=== PATIENT | female | born 1955 | race Caucasian/White ===

== ENCOUNTER → 2019-03-28 | Day surgery (SDC) | payer MEDICARE, MEDICAID ==
[~2019-03-28] VITALS: Ht 157.5 cm; Wt 74.8 kg
[~2019-03-28] MED LIST: AMLO10TA80 PO; ASPI-1393 PO; BACITRACIN 50,000 UNITS/VIAL ONE; DAPA10TA PO; GABA-531 PO; HYDR25TA PO; INSNOV SUBCUT; INSU100I24 SQ; LIDOCAINE HCL/EPINEPHRINE 1%-EPI 1:100,000 20 ML VIAL ONE; LOSA100T32 PO; THROMBIN (BOVINE) 5000 UNITS/VIAL TOP ONE; TRAM50TA3 PO
== END | disposition home or self-care (01) ==
LOC: OR 09:46
PROVIDERS: ATTEND Neurological Surgery
DX: M54.2 Cervicalgia (principal); E11.9 Type 2 diabetes mellitus without complications; I10 Essential (primary) hypertension; G82.50 Quadriplegia, unspecified; G95.20 Unspecified cord compression; M47.9 Spondylosis, unspecified; Z53.8 Procedure and treatment not carried out for other reasons; Z79.82 Long term (current) use of aspirin; Z79.4 Long term (current) use of insulin; Z79.899 Other long term (current) drug therapy
CPT/HCPCS: 71045; J3490

== ENCOUNTER 2019-04-11 05:14 | Inpatient (IN) | payer MEDICARE, MEDICAID ==
[~2019-04-11] VITALS: Ht 157.5 cm; Wt 81.6 kg
[2019-04-11] VITALS (79 sets, daily range): BP systolic 44–179; BP diastolic 21–84
[~2019-04-11 05:14] MED LIST changes: -ASPI-1393 PO; -BACITRACIN 50,000 UNITS/VIAL ONE; -GABA-531 PO; -LIDOCAINE HCL/EPINEPHRINE 1%-EPI 1:100,000 20 ML VIAL ONE; -THROMBIN (BOVINE) 5000 UNITS/VIAL TOP ONE
[2019-04-11] MEDS ORDERED: BACITRACIN 15GM TUBE TOP ONE (06:08)
[2019-04-11] MEDS ORDERED: NORMAL SALINE 0.9% 10 ML SYR ONE (06:08)
[2019-04-11] MEDS ORDERED: THROMBIN (BOVINE) 5000 UNITS/VIAL TOP ONE (06:08)
[2019-04-11] MEDS ORDERED: LIDOCAINE HCL/EPINEPHRINE 1%-EPI 1:100,000 20 ML VIAL ONE (06:09)
[2019-04-11] MEDS ORDERED: BACITRACIN 50,000 UNITS/VIAL ONE ×2 (06:09→06:10)
[2019-04-11 06:12] LABS: BASOPHILS % 0.7 % (0.0-2.0); EOSINOPHILS % 2.2 % (0.0-5.0); HEMATOCRIT. 40.7 % (36.0-48.0); HEMOGLOBIN. 13.6 g/dL (12.0-16.0); LYMPHOCYTES % 21.2 % (20.0-50.0); MEAN CORPUSCULAR HEMOGLOBIN 30.6 pg (28.0-32.0); MEAN CORPUSCULAR VOLUME 91.7 fL (81.0-99.0); MEAN PLATELET VOLUME 8.2 fl (7.4-10.4); MONOCYTES % 9.2 % (2.0-8.0); NEUTROPHILS % 66.7 % (40.0-76.0); PLATELET 299 x1000/uL (130-400); RED BLOOD CELL COUNT 4.44 mill/uL (4.2-5.4)
[2019-04-11 06:20] LABS: PARTIAL THROMBOPLASTIN TIME 26.8 sec (23.4-31.0); PROTHROMBIN TIME 10.4 sec (9.6-11.0)
[2019-04-11] MEDS ORDERED: SODIUM CHLORIDE 0.9% 1,000 ML IV SCH (06:20)
[2019-04-11 06:22] LABS: CHLORIDE 104 mEq/L (98-107)
[2019-04-11] MEDS ORDERED: MIDAZOLAM HCL 2 MG/2 ML VIAL ONE (06:40)
[2019-04-11] MEDS ORDERED: FENTANYL CITRATE/PF 50MCG/ML 2ML VIAL ONE (06:40)
[2019-04-11] MEDS ORDERED: LIDOCAINE HCL 1% 20ML VIAL (Pyxis) INJ ONE (06:42)
[2019-04-11] MEDS ORDERED: ETOMIDATE 2MG/ML 10ML VIAL IV ONE (06:42)
[2019-04-11] MEDS ORDERED: PROPOFOL 200MG/20ML VIAL IV ONE ×2 (06:44→08:14)
[2019-04-11 06:46] LABS: CLARITY URINE CLEAR (CLEAR); COLOR URINE YELLOW (YELLOW); KETONES URINE NEGATIVE (NEGATIVE); LEUKOCYTE ESTERASE URINE NEGATIVE (NEGATIVE); NITRITE URINE NEGATIVE (NEGATIVE); OCCULT BLOOD URINE NEGATIVE (NEGATIVE); PH URINE 6.5 (4.5-8.0); PROTEIN URINE NEGATIVE (NEGATIVE); SPECIFIC GRAVITY URINE 1.011 (1.005-1.030); UROBILINOGEN URINE 0.2 E.U./dL (0.2-1.0)
[2019-04-11] MEDS ORDERED: ROCURONIUM BROMIDE 10MG/ML VIAL 5ML IV ONE ×2 (06:46→07:52)
[2019-04-11] MEDS ORDERED: EPHEDRINE SULFATE 50MG/ML VIAL ONE (06:47)
[2019-04-11] MEDS ORDERED: SODIUM CHLORIDE 0.9% 10ML VIAL ONE ×3 (06:48→08:23)
[2019-04-11] MEDS ORDERED: SUCCINYLCHOLINE CHLORIDE 200MG/10ML IV ONE (06:48)
[2019-04-11] MEDS ORDERED: PHENYLEPHRINE HCL 10 MG/ML 1ML (IV VIAL) IV ONE (06:52)
[2019-04-11] MEDS ORDERED: CEFAZOLIN SODIUM 1000MG/VIAL ONE (07:00)
[2019-04-11] MEDS ORDERED: GABA-531 PO (08:07)
[2019-04-11] MEDS ORDERED: ASPI-1393 PO (08:07)
[2019-04-11] MEDS ORDERED: DEXAMETHASONE 4MG/ML 1ML VIAL ONE (08:12)
[2019-04-11] MEDS ORDERED: HYDRALAZINE 20MG/ML VIAL ONE (08:17)
[2019-04-11] MEDS ORDERED: LABETALOL HCL 5MG/ML VIAL 20ML IV ONE (08:18)
[2019-04-11] MEDS ORDERED: NEOSTIGMINE METHYLSULFATE 1MG/ML 10 ML VIAL ONE (09:25)
[2019-04-11] MEDS ORDERED: GLYCOPYRROLATE 0.2 MG/ML 2ML VIAL ONE (09:26)
[2019-04-11] MEDS ORDERED: ONDANSETRON HCL 4MG/2ML INJ ONE (09:26)
[2019-04-11] MEDS ORDERED: MORPHINE SULFATE 4 MG/ML CPJ (NOT FOR IM USE) IV PRN (09:30)
[2019-04-11] MEDS ORDERED: ONDANSETRON HCL 4MG/2ML INJ IV PRN (09:30)
[2019-04-11] MEDS: DEXT 5%/LACTATED RINGERS 1,000 ML IV SCH ×2 (10:15→18:22)
[2019-04-11] MEDS ORDERED: NICARDIPINE 100 MG in SODIUM CHLORIDE 0.9% 60 ML IV PRN (11:00)
[2019-04-11] MEDS ORDERED: PROPOFOL 10MG/ML 100ML 100 ML IV PRN (11:15)
[2019-04-11 11:42] LABS: BG BASE EXCESS -4.2 mmol/L (-2.0-2.0); BG CARBOXYHEMOGLOBIN 0.1 % (0.5-1.5); BG DEOXYHEMOGLOBIN 1.5 % (0.0-5.0); BG FRACTION INSPIRED OXYGEN 40; BG HCO3 ACT 20.4 mmol/L (22.0-26.0); BG METHEMOGLOBIN 0.3 % (0.0-1.5); BG OXYGEN SATURATION 98.5 % (92.0-98.5); BG OXYHEMOGLOBIN 98.1 % (94.0-97.0); BG PH 7.372 (7.350-7.450); BG PO2 135.8 mmHg (75.0-100.0); BG PRESSURE SUPPORT 10; BG SAMPLE SITE A-LINE; BG TIDAL VOLUME(mL) 500 mL; BG TOTAL HEMOGLOBIN 12.5 g/dL (12.0-18.0); BG VENT MODE VENT - SIMV; BG VENT RATE 12 set
[2019-04-11] MEDS: IPRATROPIUM/ALBUTEROL 0.5-3(2.5)MG/3ML NEB HHN PRN (12:03)
[2019-04-11] MEDS: PROPOFOL 10MG/ML 100ML 100 ML IV PRN (12:18)
[2019-04-11] MEDS: DEXAMETHASONE 4MG/ML 1ML VIAL IV SCH ×3 (12:57→23:38)
[2019-04-11] MEDS ORDERED: CEFAZOLIN SODIUM 1000MG/VIAL IV SCH (14:00)
[2019-04-11] MEDS: CEFAZOLIN 1000MG PREMIX 50 ML IV SCH ×2 (14:35→22:06)
[2019-04-11] MEDS: MORPHINE SULFATE 4 MG/ML CPJ (NOT FOR IM USE) IV PRN ×3 (14:58→23:39)
[2019-04-11] MEDS ORDERED: DEXTROSE 50% WATER 50ML SYRINGE IV PRN (18:00)
[2019-04-11] MEDS: BLOOD SUGAR DIAGNOSTIC STRIP TEST SCH ×2 (18:09→23:11)
[2019-04-11] MEDS: INSULIN LISPRO 100 UNITS/ML SUBCUT SCH ×2 (18:22→23:41)
[2019-04-11] MEDS: IPRATROPIUM/ALBUTEROL 0.5-3(2.5)MG/3ML NEB HHN SCH (20:41)
[2019-04-12] VITALS (109 sets, daily range): BP systolic 60–179; BP diastolic 40–176
[2019-04-12] MEDS: IPRATROPIUM/ALBUTEROL 0.5-3(2.5)MG/3ML NEB HHN SCH ×4 (02:09→20:28)
[2019-04-12] MEDS: PROPOFOL 10MG/ML 100ML 100 ML IV PRN (03:26)
[2019-04-12] MEDS: DEXT 5%/LACTATED RINGERS 1,000 ML IV SCH ×3 (03:35→20:00)
[2019-04-12] MEDS: MORPHINE SULFATE 4 MG/ML CPJ (NOT FOR IM USE) IV PRN ×5 (03:47→21:34)
[2019-04-12] MEDS: BLOOD SUGAR DIAGNOSTIC STRIP TEST SCH ×4 (05:54→20:42)
[2019-04-12] MEDS: CEFAZOLIN 1000MG PREMIX 50 ML IV SCH (05:54)
[2019-04-12] MEDS: DEXAMETHASONE 4MG/ML 1ML VIAL IV SCH ×3 (05:54→17:32)
[2019-04-12] MEDS: INSULIN LISPRO 100 UNITS/ML SUBCUT SCH ×4 (05:55→20:39)
[2019-04-12 07:28] LABS: BG BASE EXCESS -3.3 mmol/L (-2.0-2.0); BG CARBOXYHEMOGLOBIN 0.3 % (0.5-1.5); BG DEOXYHEMOGLOBIN 3.7 % (0.0-5.0); BG FRACTION INSPIRED OXYGEN 35; BG HCO3 ACT 21.6 mmol/L (22.0-26.0); BG METHEMOGLOBIN 0.3 % (0.0-1.5); BG OXYGEN SATURATION 96.3 % (92.0-98.5); BG OXYHEMOGLOBIN 95.7 % (94.0-97.0); BG PCO2 38.4 mmHg (35.0-45.0); BG PH 7.368 (7.350-7.450); BG PO2 85.9 mmHg (75.0-100.0); BG SAMPLE SITE A-LINE; BG TIDAL VOLUME(mL) 450 mL; BG TOTAL HEMOGLOBIN 11.6 g/dL (12.0-18.0); BG VENT MODE VENT - A/C; BG VENT RATE 12 set
[2019-04-12] MEDS: PANTOPRAZOLE SODIUM 40 MG/VIAL IV SCH (08:02)
[2019-04-12] MEDS ORDERED: PROPOFOL 10MG/ML 100ML 100 ML IV PRN (08:33)
[2019-04-13] VITALS (101 sets, daily range): BP systolic 84–207; BP diastolic 53–103
[2019-04-13] MEDS: DEXT 5%/LACTATED RINGERS 1,000 ML IV SCH ×3 (00:36→23:31)
[2019-04-13] MEDS: DEXAMETHASONE 4MG/ML 1ML VIAL IV SCH ×4 (00:36→20:52)
[2019-04-13] MEDS: IPRATROPIUM/ALBUTEROL 0.5-3(2.5)MG/3ML NEB HHN SCH ×3 (01:30→19:57)
[2019-04-13] MEDS: MORPHINE SULFATE 4 MG/ML CPJ (NOT FOR IM USE) IV PRN ×5 (02:55→20:54)
[2019-04-13 05:07] LABS: HEMATOCRIT. 35.6 % (36.0-48.0); HEMOGLOBIN. 11.7 g/dL (12.0-16.0); MEAN CORPUSCULAR HEMOGLOBIN 30.5 pg (28.0-32.0); MEAN CORPUSCULAR VOLUME 92.8 fL (81.0-99.0); MEAN PLATELET VOLUME 8.8 fl (7.4-10.4); PLATELET 258 x1000/uL (130-400); RED BLOOD CELL COUNT 3.83 mill/uL (4.2-5.4); RED CELL DISTRIBUTION WIDTH 14.1 % (11.6-14.6)
[2019-04-13 05:16] LABS: CHLORIDE 109 mEq/L (98-107)
[2019-04-13] MEDS: BLOOD SUGAR DIAGNOSTIC STRIP TEST SCH ×4 (05:49→20:56)
[2019-04-13] MEDS: INSULIN LISPRO 100 UNITS/ML SUBCUT SCH ×4 (07:03→21:14)
[2019-04-13 07:13] LABS: PLATELET ESTIMATE NORMAL
[2019-04-13] MEDS: PANTOPRAZOLE SODIUM 40 MG/VIAL IV SCH (08:55)
[2019-04-13] MEDS: DIPHENHYDRAMINE 50MG/ML VIAL IV PRN ×2 (11:33→21:41)
[2019-04-13] MEDS: IPRATROPIUM/ALBUTEROL 0.5-3(2.5)MG/3ML NEB HHN PRN (11:49)
[2019-04-13] MEDS: HYDRALAZINE 20MG/ML VIAL IV SCH ×2 (12:30→18:12)
[2019-04-13] MEDS ORDERED: ENALAPRIL 1.25MG/ML VIAL 1ML IV PRN (13:00)
[2019-04-13] MEDS: INSULIN GLARGINE UD 100 UNITS/ML SYR SUBCUT SCH ×2 (15:41→23:29)
[2019-04-14] VITALS (75 sets, daily range): BP systolic 110–175; BP diastolic 49–107
[2019-04-14] MEDS: MORPHINE SULFATE 4 MG/ML CPJ (NOT FOR IM USE) IV PRN ×2 (01:33→06:04)
[2019-04-14] MEDS: IPRATROPIUM/ALBUTEROL 0.5-3(2.5)MG/3ML NEB HHN SCH ×5 (01:33→20:50)
[2019-04-14] MEDS: HYDRALAZINE 20MG/ML VIAL IV SCH ×5 (01:36→23:51)
[2019-04-14 04:36] LABS: BASOPHILS % 0.1 % (0.0-2.0); HEMATOCRIT. 36.3 % (36.0-48.0); LYMPHOCYTES % 8.3 % (20.0-50.0); MEAN CORPUSCULAR HEMOGLOBIN 30.9 pg (28.0-32.0); MEAN CORPUSCULAR VOLUME 93.2 fL (81.0-99.0); MEAN PLATELET VOLUME 8.6 fl (7.4-10.4); MONOCYTES % 4.1 % (2.0-8.0); NEUTROPHILS % 87.5 % (40.0-76.0); PLATELET 259 x1000/uL (130-400); RED BLOOD CELL COUNT 3.89 mill/uL (4.2-5.4); RED CELL DISTRIBUTION WIDTH 14.3 % (11.6-14.6)
[2019-04-14 04:47] LABS: CHLORIDE 107 mEq/L (98-107)
[2019-04-14] MEDS: BLOOD SUGAR DIAGNOSTIC STRIP TEST SCH ×4 (05:47→20:36)
[2019-04-14] MEDS: INSULIN LISPRO 100 UNITS/ML SUBCUT SCH ×4 (06:20→20:41)
[2019-04-14] MEDS: DIPHENHYDRAMINE 50MG/ML VIAL IV PRN ×2 (06:27→20:38)
[2019-04-14] MEDS ORDERED: RACEPINEPHRINE 2.25% 0.5ML NEB VIAL HHN PRN (08:45)
[2019-04-14] MEDS: DEXT 5%/LACTATED RINGERS 1,000 ML IV SCH ×2 (09:23→21:15)
[2019-04-14] MEDS: DEXAMETHASONE 4MG/ML 1ML VIAL IV SCH ×2 (09:23→20:37)
[2019-04-14] MEDS: FAMOTIDINE 20MG/2ML VIAL IV SCH ×2 (09:23→20:37)
[2019-04-14] MEDS: CEFTRIAXONE 1 G PREMIX 50 ML IV SCH (10:09)
[2019-04-14 10:18] LABS: BG BASE EXCESS 2.4 mmol/L (-2.0-2.0); BG CARBOXYHEMOGLOBIN 0.3 % (0.5-1.5); BG DEOXYHEMOGLOBIN 2.7 % (0.0-5.0); BG FRACTION INSPIRED OXYGEN 35; BG HCO3 ACT 25.7 mmol/L (22.0-26.0); BG METHEMOGLOBIN 0.3 % (0.0-1.5); BG OXYGEN SATURATION 97.3 % (92.0-98.5); BG OXYHEMOGLOBIN 96.7 % (94.0-97.0); BG PCO2 35.5 mmHg (35.0-45.0); BG PH 7.478 (7.350-7.450); BG PO2 93.3 mmHg (75.0-100.0); BG PRESSURE SUPPORT 8; BG SAMPLE SITE RIGHT BRACHIAL; BG TOTAL HEMOGLOBIN 12.6 g/dL (12.0-18.0); BG VENT MODE VENT - CPAP
[2019-04-14] MEDS: HYDROMORPHONE HCL/PF 2MG/ML CPJ IV PRN ×2 (12:20→16:54)
[2019-04-14] MEDS: ACETYLCYSTEINE 100MG/ML 10% VIAL 4ML INH SCH (15:52)
[2019-04-14] MEDS ORDERED: INSULIN GLARGINE UD 100 UNITS/ML SYR SUBCUT SCH (22:00)
[2019-04-15] VITALS (51 sets, daily range): BP systolic 86–172; BP diastolic 41–92
[2019-04-15] MEDS: IPRATROPIUM/ALBUTEROL 0.5-3(2.5)MG/3ML NEB HHN SCH ×6 (00:14→20:59)
[2019-04-15] MEDS: ACETYLCYSTEINE 100MG/ML 10% VIAL 4ML INH SCH ×3 (00:15→17:19)
[2019-04-15] MEDS: HYDROMORPHONE HCL/PF 2MG/ML CPJ IV PRN ×5 (00:54→21:13)
[2019-04-15 05:04] LABS: CHLORIDE 107 mEq/L (98-107); HEMOGLOBIN. 11.9 g/dL (12.0-16.0); LYMPHOCYTES % 10.1 % (20.0-50.0); MEAN CORPUSCULAR HEMOGLOBIN 30.7 pg (28.0-32.0); MEAN CORPUSCULAR VOLUME 93.1 fL (81.0-99.0); MEAN PLATELET VOLUME 8.9 fl (7.4-10.4); MONOCYTES % 5.8 % (2.0-8.0); NEUTROPHILS % 84.1 % (40.0-76.0); PLATELET 229 x1000/uL (130-400); RED BLOOD CELL COUNT 3.87 mill/uL (4.2-5.4); RED CELL DISTRIBUTION WIDTH 13.9 % (11.6-14.6)
[2019-04-15] MEDS: BLOOD SUGAR DIAGNOSTIC STRIP TEST SCH ×4 (05:45→20:24)
[2019-04-15] MEDS: HYDRALAZINE 20MG/ML VIAL IV SCH ×3 (06:02→18:51)
[2019-04-15] MEDS: INSULIN LISPRO 100 UNITS/ML SUBCUT SCH ×4 (06:03→21:14)
[2019-04-15] MEDS: FAMOTIDINE 20MG/2ML VIAL IV SCH ×2 (08:38→21:12)
[2019-04-15] MEDS: DEXAMETHASONE 4MG/ML 1ML VIAL IV SCH ×2 (08:38→21:12)
[2019-04-15] MEDS: DEXT 5%/LACTATED RINGERS 1,000 ML IV SCH (08:38)
[2019-04-15] MEDS: CEFTRIAXONE 1 G PREMIX 50 ML IV SCH (10:03)
[2019-04-15] MEDS: LACTATED RINGERS 1,000 ML IV SCH (12:47)
[2019-04-15] MEDS ORDERED: DOCUSATE SODIUM 100MG CAPSULE PO SCH (17:00)
[2019-04-15] MEDS ORDERED: DOCUSATE SODIUM 100MG CAPSULE NG SCH (17:00)
[2019-04-15] MEDS: DOCUSATE SODIUM SUGAR FREE 100MG/10ML UDC NG SCH (17:05)
[2019-04-15] MEDS ORDERED: POLYETHYLENE GLYCOL 3350 (17GM) 1 DOSE PACK PO SCH (21:00)
[2019-04-15] MEDS: POLYETHYLENE GLYCOL 3350 (17GM) 1 DOSE PACK NG SCH (21:14)
[2019-04-15] MEDS: INSULIN GLARGINE UD 100 UNITS/ML SYR SUBCUT SCH (21:14)
[2019-04-15] MEDS ORDERED: INSULIN GLARGINE UD 100 UNITS/ML SYR SUBCUT SCH (22:00)
[2019-04-15] MEDS: DIPHENHYDRAMINE 50MG/ML VIAL IV PRN (23:33)
[2019-04-16] VITALS (31 sets, daily range): BP systolic 113–173; BP diastolic 55–94
[2019-04-16] MEDS: ACETYLCYSTEINE 100MG/ML 10% VIAL 4ML INH SCH ×2 (00:19→09:24)
[2019-04-16] MEDS: IPRATROPIUM/ALBUTEROL 0.5-3(2.5)MG/3ML NEB HHN SCH ×6 (00:19→21:21)
[2019-04-16] MEDS: HYDRALAZINE 20MG/ML VIAL IV SCH ×2 (00:25→05:57)
[2019-04-16] MEDS: LACTATED RINGERS 1,000 ML IV SCH (02:05)
[2019-04-16 05:12] LABS: CHLORIDE 104 mEq/L (98-107)
[2019-04-16 05:24] LABS: BASOPHILS % 0.2 % (0.0-2.0); HEMATOCRIT. 37.6 % (36.0-48.0); HEMOGLOBIN. 12.8 g/dL (12.0-16.0); LYMPHOCYTES % 12.5 % (20.0-50.0); MEAN CORPUSCULAR HEMOGLOBIN 30.9 pg (28.0-32.0); MEAN CORPUSCULAR VOLUME 90.9 fL (81.0-99.0); MONOCYTES % 5.6 % (2.0-8.0); NEUTROPHILS % 81.7 % (40.0-76.0); RED BLOOD CELL COUNT 4.13 mill/uL (4.2-5.4); RED CELL DISTRIBUTION WIDTH 14.1 % (11.6-14.6)
[2019-04-16] MEDS: BLOOD SUGAR DIAGNOSTIC STRIP TEST SCH ×4 (05:55→21:29)
[2019-04-16] MEDS: INSULIN LISPRO 100 UNITS/ML SUBCUT SCH ×5 (05:56→22:07)
[2019-04-16] MEDS: HYDROMORPHONE HCL/PF 2MG/ML CPJ IV PRN (06:05)
[2019-04-16] MEDS: DIPHENHYDRAMINE 50MG/ML VIAL IV PRN (06:05)
[2019-04-16] MEDS: CEFTRIAXONE 1 G PREMIX 50 ML IV SCH (10:01)
[2019-04-16] MEDS: DEXAMETHASONE 4MG/ML 1ML VIAL IV SCH (10:01)
[2019-04-16] MEDS: AMLODIPINE 5MG TABLET PO SCH ×2 (10:02→21:29)
[2019-04-16] MEDS: DOCUSATE SODIUM SUGAR FREE 100MG/10ML UDC NG SCH ×2 (10:02→18:03)
[2019-04-16] MEDS: FAMOTIDINE 20MG/2ML VIAL IV SCH (10:03)
[2019-04-16] MEDS: INSULIN GLARGINE UD 100 UNITS/ML SYR SUBCUT SCH ×2 (10:04→22:07)
[2019-04-16] MEDS: HYDROCODONE/ACETAMINOPHEN 5/325MG TABLET NG PRN (14:14)
[2019-04-16] MEDS: CEPHALEXIN 250MG CAPSULE PO SCH ×2 (15:44→21:29)
[2019-04-16] MEDS ORDERED: CLONIDINE 0.1MG TABLET PO PRN (15:45)
[2019-04-16] MEDS: HYDROCODONE/ACETAMINOPHEN 10/325MG TABLET NG PRN (15:45)
[2019-04-16] MEDS ORDERED: DOCUSATE SODIUM SUGAR FREE 100MG/10ML UDC NG SCH (17:00)
[2019-04-16] MEDS: POLYETHYLENE GLYCOL 3350 (17GM) 1 DOSE PACK NG SCH ×2 (21:00→21:29)
[2019-04-16] MEDS ORDERED: DEXAMETHASONE 4MG TABLET NG SCH (21:00)
[2019-04-17] VITALS: BP 114/51
[2019-04-17] MEDS: IPRATROPIUM/ALBUTEROL 0.5-3(2.5)MG/3ML NEB HHN SCH ×4 (00:23→12:44)
[2019-04-17 04:00] VITALS: BP 127/66
[2019-04-17] MEDS: ACETYLCYSTEINE 100MG/ML 10% VIAL 4ML INH SCH (04:20)
[2019-04-17] MEDS: LACTATED RINGERS 1,000 ML IV SCH (04:45)
[2019-04-17] MEDS: CEPHALEXIN 250MG CAPSULE PO SCH ×2 (06:30→13:17)
[2019-04-17] MEDS: BLOOD SUGAR DIAGNOSTIC STRIP TEST SCH ×2 (06:30→13:06)
[2019-04-17] MEDS: HYDROCODONE/ACETAMINOPHEN 5/325MG TABLET NG PRN (06:35)
[2019-04-17 08:00] VITALS: BP 147/76
[2019-04-17 08:02] LABS: BASOPHILS % 0.1 % (0.0-2.0); EOSINOPHILS % 2.7 % (0.0-5.0); HEMATOCRIT. 35.3 % (36.0-48.0); LYMPHOCYTES % 36.8 % (20.0-50.0); MEAN CORPUSCULAR HEMOGLOBIN 30.9 pg (28.0-32.0); MEAN PLATELET VOLUME 8.1 fl (7.4-10.4); MONOCYTES % 8.7 % (2.0-8.0); NEUTROPHILS % 51.7 % (40.0-76.0); PLATELET 251 x1000/uL (130-400); RED BLOOD CELL COUNT 3.88 mill/uL (4.2-5.4); RED CELL DISTRIBUTION WIDTH 13.6 % (11.6-14.6)
[2019-04-17 08:09] LABS: CHLORIDE 103 mEq/L (98-107)
[2019-04-17] MEDS: DOCUSATE SODIUM SUGAR FREE 100MG/10ML UDC NG SCH (08:45)
[2019-04-17] MEDS: AMLODIPINE 5MG TABLET PO SCH (08:51)
[2019-04-17] MEDS: INSULIN LISPRO 100 UNITS/ML SUBCUT SCH ×2 (08:56→13:00)
[2019-04-17 12:00] VITALS: BP 112/57
[2019-04-17] MEDS: HYDROCODONE/ACETAMINOPHEN 10/325MG TABLET NG PRN (12:40)
[2019-04-17] MEDS: INSULIN GLARGINE UD 100 UNITS/ML SYR SUBCUT SCH (12:59)
[2019-04-17 15:09] VITALS: BP 121/65
[2019-04-17] MEDS ORDERED: ZOLPIDEM TARTRATE 5MG TABLET PO PRN (21:00)
== END 2019-04-17 16:15 | DRG 471 ==
LOC: OR 05:14 → MICUNO 05:15 → EDSTATUS 07:00 → 6EST 04-16 14:40
PROVIDERS: ADMIT Family Medicine Adult Medicine; ATTEND Family Medicine Adult Medicine
PROC: 0RG20A0 Fusion of 2 or more Cervical Vertebral Joints with Interbody Fusion Device, Anterior Approach, Anterior Column, Open Approach (ICD-10-PCS; principal; 2019-04-11)
PROC: 5A1945Z Respiratory Ventilation, 24-96 Consecutive Hours (ICD-10-PCS; 2019-04-11)
PROC: 0RB30ZZ Excision of Cervical Vertebral Disc, Open Approach (ICD-10-PCS; 2019-04-11)
PROC: 00NW0ZZ Release Cervical Spinal Cord, Open Approach (ICD-10-PCS; 2019-04-11)
PROC: 01N10ZZ Release Cervical Nerve, Open Approach (ICD-10-PCS; 2019-04-11)
PROC: 4A11X4G Monitoring of Peripheral Nervous Electrical Activity, Intraoperative, External Approach (ICD-10-PCS; 2019-04-11)
DX: M48.02 Spinal stenosis, cervical region (principal); G82.50 Quadriplegia, unspecified; J96.90 Respiratory failure, unspecified, unspecified whether with hypoxia or hypercapnia; J18.9 Pneumonia, unspecified organism; J98.11 Atelectasis; G95.29 Other cord compression; M47.12 Other spondylosis with myelopathy, cervical region; M54.12 Radiculopathy, cervical region; I10 Essential (primary) hypertension; L29.9 Pruritus, unspecified; D64.9 Anemia, unspecified; E78.00 Pure hypercholesterolemia, unspecified; R13.10 Dysphagia, unspecified; I25.10 Atherosclerotic heart disease of native coronary artery without angina pectoris; Z98.1 Arthrodesis status; Z88.5 Allergy status to narcotic agent; Z82.49 Family history of ischemic heart disease and other diseases of the circulatory system; Z78.1 Physical restraint status; E11.65 Type 2 diabetes mellitus with hyperglycemia
CPT/HCPCS: 36415; 36600; 71045; 72040; 72141; 76000; 80048; 82375; 82805; 82962; 83735; 84478; 86850; 86900; 88304; 88311; 92610; 93005; 94003; 94640; 95925; 95926; 95928; 95929; 97116; 97162; 97166; 97530; C1713; C9113; J0330; J0360; J0690; J0696; J1100; J1170; J1200; J1815; J2250; J2270; J2370; J2405; J2704; J2710; J3010; J3490; J7050; J7120; J7121; J7608; J7620; L0172

== ENCOUNTER 2019-04-17 16:20 | Inpatient (IN) | payer MEDICARE, MEDICAID ==
[~2019-04-17] VITALS: Ht 157.5 cm; Wt 81.7 kg
[~2019-04-17 16:20] MED LIST changes: +ASPI-1393 PO; +GABA-531 PO
[2019-04-17 16:30] VITALS: BP 117/57
[2019-04-17 17:00] VITALS: BP 117/57
[2019-04-17] MEDS ORDERED: HYDROCODONE/ACETAMINOPHEN 10/325MG TABLET PO PRN (17:30)
[2019-04-17] MEDS ORDERED: ZOLPIDEM TARTRATE 5MG TABLET PO PRN (17:30)
[2019-04-17] MEDS ORDERED: DEXTROSE 50% WATER 50ML SYRINGE IV PRN (17:30)
[2019-04-17] MEDS ORDERED: IPRATROPIUM/ALBUTEROL 0.5-3(2.5)MG/3ML NEB HHN PRN (17:30)
[2019-04-17] MEDS ORDERED: CLONIDINE 0.1MG TABLET PO PRN (17:30)
[2019-04-17] MEDS ORDERED: RACEPINEPHRINE 2.25% 0.5ML NEB VIAL HHN PRN (17:30)
[2019-04-17] MEDS ORDERED: DIPHENHYDRAMINE 25MG CAPSULE PO PRN (17:30)
[2019-04-17 20:00] VITALS: BP 116/58
[2019-04-17] MEDS: HYDROCODONE/ACETAMINOPHEN 5/325MG TABLET PO PRN (20:16)
[2019-04-17] MEDS: POLYETHYLENE GLYCOL 3350 (17GM) 1 DOSE PACK PO SCH (20:16)
[2019-04-17] MEDS: AMLODIPINE 5MG TABLET PO SCH (20:16)
[2019-04-17] MEDS: BLOOD SUGAR DIAGNOSTIC STRIP TEST SCH (21:19)
[2019-04-17] MEDS: IPRATROPIUM/ALBUTEROL 0.5-3(2.5)MG/3ML NEB HHN SCH (21:25)
[2019-04-17] MEDS: INSULIN GLARGINE UD 100 UNITS/ML SYR SUBCUT SCH (21:42)
[2019-04-17] MEDS: INSULIN LISPRO 100 UNITS/ML SUBCUT SCH (21:42)
[2019-04-17] MEDS: CEPHALEXIN 250MG CAPSULE PO SCH (21:43)
[2019-04-18] MEDS: ACETYLCYSTEINE 100MG/ML 10% VIAL 4ML INH SCH ×3 (00:36→17:53)
[2019-04-18] MEDS: IPRATROPIUM/ALBUTEROL 0.5-3(2.5)MG/3ML NEB HHN SCH ×6 (00:37→20:00)
[2019-04-18] MEDS: HYDROCODONE/ACETAMINOPHEN 5/325MG TABLET PO PRN ×2 (03:01→08:42)
[2019-04-18] MEDS: CEPHALEXIN 250MG CAPSULE PO SCH ×3 (05:42→21:28)
[2019-04-18] MEDS: BLOOD SUGAR DIAGNOSTIC STRIP TEST SCH ×4 (06:21→21:08)
[2019-04-18] MEDS: INSULIN LISPRO 100 UNITS/ML SUBCUT SCH ×4 (06:40→21:27)
[2019-04-18 07:09] LABS: BASOPHILS % 0.1 % (0.0-2.0); EOSINOPHILS % 5.9 % (0.0-5.0); HEMATOCRIT. 32.3 % (36.0-48.0); HEMOGLOBIN. 11.1 g/dL (12.0-16.0); LYMPHOCYTES % 28.8 % (20.0-50.0); MEAN CORPUSCULAR HEMOGLOBIN 31.3 pg (28.0-32.0); MEAN CORPUSCULAR VOLUME 91.1 fL (81.0-99.0); MEAN PLATELET VOLUME 8.3 fl (7.4-10.4); MONOCYTES % 7.6 % (2.0-8.0); NEUTROPHILS % 57.6 % (40.0-76.0); PLATELET 224 x1000/uL (130-400); RED BLOOD CELL COUNT 3.54 mill/uL (4.2-5.4); RED CELL DISTRIBUTION WIDTH 13.4 % (11.6-14.6)
[2019-04-18 07:56] LABS: CHLORIDE 103 mEq/L (98-107)
[2019-04-18 08:00] VITALS: BP 142/70
[2019-04-18] MEDS: DOCUSATE SODIUM 100MG CAPSULE PO SCH ×2 (08:41→17:30)
[2019-04-18] MEDS: GABAPENTIN 300MG CAPSULE PO SCH ×2 (08:41→17:30)
[2019-04-18] MEDS: AMLODIPINE 5MG TABLET PO SCH ×2 (08:41→21:05)
[2019-04-18] MEDS ORDERED: GABAPENTIN 300MG CAPSULE PO SCH (09:00)
[2019-04-18] MEDS: INSULIN GLARGINE UD 100 UNITS/ML SYR SUBCUT SCH ×2 (09:46→21:27)
[2019-04-18] MEDS ORDERED: POTASSIUM CHLORIDE 20MEQ TABLET SR PO NR (12:30)
[2019-04-18] MEDS: TRAMADOL 50MG TABLET PO PRN (13:54)
[2019-04-18 20:00] VITALS: BP 129/65
[2019-04-18] MEDS: OFLOXACIN OTIC DROPS/10 ML BOTTLE RIGHT EAR SCH (21:05)
[2019-04-18] MEDS: POLYETHYLENE GLYCOL 3350 (17GM) 1 DOSE PACK PO SCH (21:07)
[2019-04-19] MEDS: IPRATROPIUM/ALBUTEROL 0.5-3(2.5)MG/3ML NEB HHN SCH ×5 (00:14→21:29)
[2019-04-19] MEDS: ACETYLCYSTEINE 100MG/ML 10% VIAL 4ML INH SCH ×2 (00:14→17:57)
[2019-04-19] MEDS: CEPHALEXIN 250MG CAPSULE PO SCH ×3 (06:37→22:00)
[2019-04-19] MEDS: TRAMADOL 50MG TABLET PO PRN ×2 (06:38→20:51)
[2019-04-19 06:52] LABS: BASOPHILS % 0.2 % (0.0-2.0); EOSINOPHILS % 6.5 % (0.0-5.0); HEMATOCRIT. 33.5 % (36.0-48.0); HEMOGLOBIN. 11.5 g/dL (12.0-16.0); LYMPHOCYTES % 27.8 % (20.0-50.0); MEAN CORPUSCULAR HEMOGLOBIN 31.5 pg (28.0-32.0); MEAN CORPUSCULAR VOLUME 91.9 fL (81.0-99.0); MEAN PLATELET VOLUME 7.9 fl (7.4-10.4); MONOCYTES % 8.9 % (2.0-8.0); NEUTROPHILS % 56.6 % (40.0-76.0); PLATELET 228 x1000/uL (130-400); RED BLOOD CELL COUNT 3.64 mill/uL (4.2-5.4); RED CELL DISTRIBUTION WIDTH 13.2 % (11.6-14.6)
[2019-04-19] MEDS: BLOOD SUGAR DIAGNOSTIC STRIP TEST SCH ×4 (06:53→21:24)
[2019-04-19] MEDS: INSULIN LISPRO 100 UNITS/ML SUBCUT SCH ×4 (06:53→22:01)
[2019-04-19 07:27] LABS: CHLORIDE 104 mEq/L (98-107)
[2019-04-19 07:57] VITALS: BP 133/63
[2019-04-19] MEDS: OFLOXACIN OTIC DROPS/10 ML BOTTLE RIGHT EAR SCH ×4 (09:27→20:50)
[2019-04-19] MEDS: ACETAMINOPHEN 500MG TABLET PO PRN (09:28)
[2019-04-19] MEDS: DOCUSATE SODIUM 100MG CAPSULE PO SCH ×2 (09:28→16:44)
[2019-04-19] MEDS: AMLODIPINE 5MG TABLET PO SCH ×2 (09:28→20:50)
[2019-04-19] MEDS: GABAPENTIN 300MG CAPSULE PO SCH ×2 (09:28→16:44)
[2019-04-19] MEDS: INSULIN GLARGINE UD 100 UNITS/ML SYR SUBCUT SCH ×2 (10:36→22:02)
[2019-04-19 20:00] VITALS: BP 141/71
[2019-04-19] MEDS: POLYETHYLENE GLYCOL 3350 (17GM) 1 DOSE PACK PO SCH (20:51)
[2019-04-19] MEDS: HYDROCORTISONE 1% OINT 28.35GM TOP SCH (22:00)
[2019-04-19 23:39] LABS: CLARITY URINE CLEAR (CLEAR); COLOR URINE YELLOW (YELLOW); KETONES URINE NEGATIVE (NEGATIVE); LEUKOCYTE ESTERASE URINE TRACE (NEGATIVE); NITRITE URINE NEGATIVE (NEGATIVE); OCCULT BLOOD URINE NEGATIVE (NEGATIVE); PH URINE 7.5 (4.5-8.0); PROTEIN URINE NEGATIVE (NEGATIVE); SPECIFIC GRAVITY URINE 1.016 (1.005-1.030)
[2019-04-20] MEDS: IPRATROPIUM/ALBUTEROL 0.5-3(2.5)MG/3ML NEB HHN SCH ×7 (01:13→21:28)
[2019-04-20] MEDS: ACETYLCYSTEINE 100MG/ML 10% VIAL 4ML INH SCH ×3 (01:13→14:22)
[2019-04-20] MEDS: CEPHALEXIN 250MG CAPSULE PO SCH ×3 (06:11→21:53)
[2019-04-20] MEDS: BLOOD SUGAR DIAGNOSTIC STRIP TEST SCH ×4 (06:12→21:57)
[2019-04-20] MEDS: HYDROCORTISONE 1% OINT 28.35GM TOP SCH ×3 (06:12→21:56)
[2019-04-20] MEDS: INSULIN LISPRO 100 UNITS/ML SUBCUT SCH ×4 (06:52→21:00)
[2019-04-20 07:59] LABS: BASOPHILS % 0.2 % (0.0-2.0); EOSINOPHILS % 6.1 % (0.0-5.0); HEMATOCRIT. 34.8 % (36.0-48.0); HEMOGLOBIN. 11.8 g/dL (12.0-16.0); LYMPHOCYTES % 23.5 % (20.0-50.0); MEAN CORPUSCULAR VOLUME 91.4 fL (81.0-99.0); MEAN PLATELET VOLUME 8.3 fl (7.4-10.4); MONOCYTES % 8.8 % (2.0-8.0); NEUTROPHILS % 61.4 % (40.0-76.0); PLATELET 250 x1000/uL (130-400); RED BLOOD CELL COUNT 3.81 mill/uL (4.2-5.4); RED CELL DISTRIBUTION WIDTH 13.4 % (11.6-14.6)
[2019-04-20 08:23] VITALS: BP 113/61
[2019-04-20 09:18] LABS: CHLORIDE 101 mEq/L (98-107)
[2019-04-20 09:30] LABS: PHOSPHORUS 3.6 mg/dL (2.5-4.9)
[2019-04-20 09:33] LABS: TOTAL IRON BINDING CAPACITY 190 ug/dL (250-450)
[2019-04-20] MEDS: GABAPENTIN 300MG CAPSULE PO SCH ×3 (09:44→16:48)
[2019-04-20] MEDS: ACETAMINOPHEN 500MG TABLET PO PRN (09:45)
[2019-04-20] MEDS: AMLODIPINE 5MG TABLET PO SCH ×2 (09:45→21:53)
[2019-04-20] MEDS: OFLOXACIN OTIC DROPS/10 ML BOTTLE RIGHT EAR SCH ×4 (09:46→21:55)
[2019-04-20] MEDS: DOCUSATE SODIUM 100MG CAPSULE PO SCH ×2 (09:46→16:48)
[2019-04-20] MEDS: INSULIN GLARGINE UD 100 UNITS/ML SYR SUBCUT SCH ×2 (09:52→22:13)
[2019-04-20 10:36] LABS: FOLIC ACID (FOLATE) SERUM 19.9 ng/mL (>5.38)
[2019-04-20 20:00] VITALS: BP 129/57
[2019-04-20] MEDS: POLYETHYLENE GLYCOL 3350 (17GM) 1 DOSE PACK PO SCH ×2 (21:00→22:16)
[2019-04-20] MEDS: TRAMADOL 50MG TABLET PO PRN (22:03)
[2019-04-21] MEDS: ACETYLCYSTEINE 100MG/ML 10% VIAL 4ML INH SCH ×2 (01:01→16:41)
[2019-04-21] MEDS: IPRATROPIUM/ALBUTEROL 0.5-3(2.5)MG/3ML NEB HHN SCH ×4 (01:03→20:27)
[2019-04-21] MEDS: CEPHALEXIN 250MG CAPSULE PO SCH ×3 (05:59→21:16)
[2019-04-21] MEDS: HYDROCORTISONE 1% OINT 28.35GM TOP SCH ×3 (05:59→21:17)
[2019-04-21 06:03] LABS: CHLORIDE 101 mEq/L (98-107)
[2019-04-21 06:34] LABS: BASOPHILS % 0.3 % (0.0-2.0); HEMATOCRIT. 33.2 % (36.0-48.0); HEMOGLOBIN. 11.5 g/dL (12.0-16.0); MEAN CORPUSCULAR HEMOGLOBIN 31.6 pg (28.0-32.0); MEAN CORPUSCULAR VOLUME 91.5 fL (81.0-99.0); MEAN PLATELET VOLUME 8.2 fl (7.4-10.4); MONOCYTES % 10.6 % (2.0-8.0); NEUTROPHILS % 58.1 % (40.0-76.0); PLATELET 266 x1000/uL (130-400); RED BLOOD CELL COUNT 3.63 mill/uL (4.2-5.4); RED CELL DISTRIBUTION WIDTH 13.1 % (11.6-14.6)
[2019-04-21] MEDS: BLOOD SUGAR DIAGNOSTIC STRIP TEST SCH ×4 (07:07→21:17)
[2019-04-21 08:12] VITALS: BP 111/57
[2019-04-21] MEDS: GABAPENTIN 300MG CAPSULE PO SCH ×3 (08:58→17:00)
[2019-04-21] MEDS: DOCUSATE SODIUM 100MG CAPSULE PO SCH ×2 (08:59→17:00)
[2019-04-21] MEDS: INSULIN LISPRO 100 UNITS/ML SUBCUT SCH ×4 (09:00→21:35)
[2019-04-21] MEDS: AMLODIPINE 5MG TABLET PO SCH ×2 (09:00→21:17)
[2019-04-21] MEDS: OFLOXACIN OTIC DROPS/10 ML BOTTLE RIGHT EAR SCH ×4 (09:04→21:16)
[2019-04-21] MEDS: INSULIN GLARGINE UD 100 UNITS/ML SYR SUBCUT SCH ×2 (10:49→21:35)
[2019-04-21] MEDS: THROAT LOZENGES-BENZOCAINE/MENTH/CETYLPYRD CL LOZENGES MM PRN (16:05)
[2019-04-21] MEDS: GUAIFENESIN-DM 200MG-20MG/10ML UDC PO PRN (16:18)
[2019-04-21 20:00] VITALS: BP 145/75
[2019-04-22] MEDS: IPRATROPIUM/ALBUTEROL 0.5-3(2.5)MG/3ML NEB HHN SCH ×6 (00:03→21:25)
[2019-04-22] MEDS: THROAT LOZENGES-BENZOCAINE/MENTH/CETYLPYRD CL LOZENGES MM PRN ×2 (03:20→20:12)
[2019-04-22] MEDS: TRAMADOL 50MG TABLET PO PRN ×2 (03:21→14:28)
[2019-04-22] MEDS: CEPHALEXIN 250MG CAPSULE PO SCH ×3 (05:48→22:01)
[2019-04-22] MEDS: BLOOD SUGAR DIAGNOSTIC STRIP TEST SCH ×4 (05:48→20:19)
[2019-04-22] MEDS: HYDROCORTISONE 1% OINT 28.35GM TOP SCH ×3 (05:49→22:00)
[2019-04-22] MEDS: INSULIN LISPRO 100 UNITS/ML SUBCUT SCH ×5 (06:02→20:25)
[2019-04-22] MEDS: ACETYLCYSTEINE 100MG/ML 10% VIAL 4ML INH SCH ×3 (07:29→12:00)
[2019-04-22 07:51] LABS: BASOPHILS % 0.4 % (0.0-2.0); EOSINOPHILS % 4.6 % (0.0-5.0); HEMATOCRIT. 32.9 % (36.0-48.0); HEMOGLOBIN. 11.2 g/dL (12.0-16.0); LYMPHOCYTES % 18.3 % (20.0-50.0); MEAN CORPUSCULAR HEMOGLOBIN 31.3 pg (28.0-32.0); MEAN CORPUSCULAR VOLUME 92.2 fL (81.0-99.0); MEAN PLATELET VOLUME 7.8 fl (7.4-10.4); MONOCYTES % 9.5 % (2.0-8.0); NEUTROPHILS % 67.2 % (40.0-76.0); PLATELET 263 x1000/uL (130-400); RED BLOOD CELL COUNT 3.57 mill/uL (4.2-5.4); RED CELL DISTRIBUTION WIDTH 13.1 % (11.6-14.6)
[2019-04-22 08:01] LABS: CHLORIDE 103 mEq/L (98-107)
[2019-04-22 08:08] VITALS: BP 115/58
[2019-04-22] MEDS: GABAPENTIN 300MG CAPSULE PO SCH ×3 (08:38→17:20)
[2019-04-22] MEDS: AMLODIPINE 5MG TABLET PO SCH ×2 (08:38→20:11)
[2019-04-22] MEDS: DOCUSATE SODIUM 100MG CAPSULE PO SCH ×2 (08:38→17:20)
[2019-04-22] MEDS: OFLOXACIN OTIC DROPS/10 ML BOTTLE RIGHT EAR SCH ×4 (08:39→20:12)
[2019-04-22] MEDS: ACETAMINOPHEN 500MG TABLET PO PRN ×2 (09:05→20:12)
[2019-04-22] MEDS: INSULIN GLARGINE UD 100 UNITS/ML SYR SUBCUT SCH ×2 (09:10→22:01)
[2019-04-22 20:00] VITALS: BP 116/67
[2019-04-22] MEDS: POLYETHYLENE GLYCOL 3350 (17GM) 1 DOSE PACK PO SCH (20:15)
[2019-04-23] MEDS: IPRATROPIUM/ALBUTEROL 0.5-3(2.5)MG/3ML NEB HHN SCH ×6 (04:14→20:18)
[2019-04-23] MEDS: CEPHALEXIN 250MG CAPSULE PO SCH ×3 (05:30→21:02)
[2019-04-23] MEDS: BLOOD SUGAR DIAGNOSTIC STRIP TEST SCH ×4 (05:30→20:50)
[2019-04-23] MEDS: HYDROCORTISONE 1% OINT 28.35GM TOP SCH ×3 (05:30→21:02)
[2019-04-23] MEDS: INSULIN LISPRO 100 UNITS/ML SUBCUT SCH ×4 (06:07→20:59)
[2019-04-23 07:55] LABS: BASOPHILS % 0.4 % (0.0-2.0); EOSINOPHILS % 4.7 % (0.0-5.0); HEMATOCRIT. 34.2 % (36.0-48.0); HEMOGLOBIN. 11.5 g/dL (12.0-16.0); MEAN CORPUSCULAR HEMOGLOBIN 30.8 pg (28.0-32.0); MEAN CORPUSCULAR VOLUME 91.5 fL (81.0-99.0); MEAN PLATELET VOLUME 7.9 fl (7.4-10.4); MONOCYTES % 8.5 % (2.0-8.0); NEUTROPHILS % 68.4 % (40.0-76.0); PLATELET 264 x1000/uL (130-400); RED BLOOD CELL COUNT 3.74 mill/uL (4.2-5.4); RED CELL DISTRIBUTION WIDTH 13.5 % (11.6-14.6)
[2019-04-23 08:00] VITALS: BP 115/55
[2019-04-23 08:02] LABS: CHLORIDE 103 mEq/L (98-107)
[2019-04-23] MEDS: DOCUSATE SODIUM 100MG CAPSULE PO SCH ×2 (08:48→16:36)
[2019-04-23] MEDS: GABAPENTIN 300MG CAPSULE PO SCH ×3 (08:48→16:36)
[2019-04-23] MEDS: TRAMADOL 50MG TABLET PO PRN ×2 (08:52→21:02)
[2019-04-23] MEDS: AMLODIPINE 5MG TABLET PO SCH ×2 (08:52→20:49)
[2019-04-23] MEDS: OFLOXACIN OTIC DROPS/10 ML BOTTLE RIGHT EAR SCH ×4 (09:39→20:50)
[2019-04-23] MEDS: INSULIN GLARGINE UD 100 UNITS/ML SYR SUBCUT SCH ×2 (09:44→21:03)
[2019-04-23] MEDS: ACETYLCYSTEINE 100MG/ML 10% VIAL 4ML INH SCH ×2 (12:01)
[2019-04-23] MEDS: ACETAMINOPHEN 500MG TABLET PO PRN (13:27)
[2019-04-23 17:09] LABS: 25-HYDROXY VITAMIN D3 22 ng/mL (.)
[2019-04-23 20:00] VITALS: BP 111/58
[2019-04-23] MEDS: POLYETHYLENE GLYCOL 3350 (17GM) 1 DOSE PACK PO SCH (20:49)
[2019-04-23] MEDS: GUAIFENESIN-DM 200MG-20MG/10ML UDC PO PRN (23:24)
[2019-04-24] MEDS: IPRATROPIUM/ALBUTEROL 0.5-3(2.5)MG/3ML NEB HHN SCH ×6 (00:35→21:02)
[2019-04-24] MEDS: BLOOD SUGAR DIAGNOSTIC STRIP TEST SCH ×4 (05:32→21:48)
[2019-04-24] MEDS: HYDROCORTISONE 1% OINT 28.35GM TOP SCH ×3 (05:32→21:47)
[2019-04-24 05:59] LABS: CHLORIDE 104 mEq/L (98-107)
[2019-04-24] MEDS: INSULIN LISPRO 100 UNITS/ML SUBCUT SCH ×4 (06:20→21:46)
[2019-04-24 06:27] LABS: BASOPHILS % 0.4 % (0.0-2.0); EOSINOPHILS % 5.6 % (0.0-5.0); HEMATOCRIT. 32.4 % (36.0-48.0); LYMPHOCYTES % 21.7 % (20.0-50.0); MEAN CORPUSCULAR HEMOGLOBIN 30.8 pg (28.0-32.0); MEAN CORPUSCULAR VOLUME 91.1 fL (81.0-99.0); MEAN PLATELET VOLUME 7.8 fl (7.4-10.4); MONOCYTES % 9.1 % (2.0-8.0); NEUTROPHILS % 63.2 % (40.0-76.0); PLATELET 236 x1000/uL (130-400); RED BLOOD CELL COUNT 3.56 mill/uL (4.2-5.4); RED CELL DISTRIBUTION WIDTH 13.3 % (11.6-14.6)
[2019-04-24 08:00] VITALS: BP 120/56
[2019-04-24] MEDS: OFLOXACIN OTIC DROPS/10 ML BOTTLE RIGHT EAR SCH ×4 (08:37→21:45)
[2019-04-24] MEDS: DOCUSATE SODIUM 100MG CAPSULE PO SCH ×2 (08:37→16:58)
[2019-04-24] MEDS: GABAPENTIN 300MG CAPSULE PO SCH ×3 (08:37→16:58)
[2019-04-24] MEDS: AMLODIPINE 5MG TABLET PO SCH ×2 (08:38→21:44)
[2019-04-24] MEDS: TRAMADOL 50MG TABLET PO PRN ×2 (09:54→17:03)
[2019-04-24] MEDS: INSULIN GLARGINE UD 100 UNITS/ML SYR SUBCUT SCH ×2 (09:56→21:47)
[2019-04-24] MEDS ORDERED: ERGOCALCIFEROL 50000UNITS CAPSULE PO SCH (16:00)
[2019-04-24 20:00] VITALS: BP 134/54
[2019-04-24] MEDS: POLYETHYLENE GLYCOL 3350 (17GM) 1 DOSE PACK PO SCH (21:00)
[2019-04-25] MEDS: IPRATROPIUM/ALBUTEROL 0.5-3(2.5)MG/3ML NEB HHN SCH ×6 (00:43→21:29)
[2019-04-25] MEDS: BLOOD SUGAR DIAGNOSTIC STRIP TEST SCH ×4 (05:31→21:05)
[2019-04-25] MEDS: HYDROCORTISONE 1% OINT 28.35GM TOP SCH ×3 (05:59→22:17)
[2019-04-25] MEDS: INSULIN LISPRO 100 UNITS/ML SUBCUT SCH ×5 (06:03→21:03)
[2019-04-25 07:30] VITALS: BP 123/59
[2019-04-25] MEDS: DOCUSATE SODIUM 100MG CAPSULE PO SCH ×2 (08:43→16:33)
[2019-04-25] MEDS: AMLODIPINE 5MG TABLET PO SCH ×2 (08:44→21:04)
[2019-04-25] MEDS: GABAPENTIN 300MG CAPSULE PO SCH ×3 (08:44→16:33)
[2019-04-25] MEDS: OFLOXACIN OTIC DROPS/10 ML BOTTLE RIGHT EAR SCH ×3 (08:49→16:33)
[2019-04-25] MEDS: TRAMADOL 50MG TABLET PO PRN (08:51)
[2019-04-25] MEDS: INSULIN GLARGINE UD 100 UNITS/ML SYR SUBCUT SCH ×2 (10:17→22:27)
[2019-04-25 20:00] VITALS: BP 116/62
[2019-04-25] MEDS: POLYETHYLENE GLYCOL 3350 (17GM) 1 DOSE PACK PO SCH (21:00)
[2019-04-25] MEDS: GUAIFENESIN-DM 200MG-20MG/10ML UDC PO PRN (22:17)
[2019-04-25] MEDS: ACETAMINOPHEN 500MG TABLET PO PRN (22:18)
[2019-04-26] MEDS: IPRATROPIUM/ALBUTEROL 0.5-3(2.5)MG/3ML NEB HHN SCH ×6 (01:21→21:24)
[2019-04-26] MEDS: HYDROCORTISONE 1% OINT 28.35GM TOP SCH ×3 (05:55→20:41)
[2019-04-26] MEDS: INSULIN LISPRO 100 UNITS/ML SUBCUT SCH ×4 (06:14→21:01)
[2019-04-26] MEDS: BLOOD SUGAR DIAGNOSTIC STRIP TEST SCH ×4 (06:14→20:41)
[2019-04-26 07:51] VITALS: BP 115/57
[2019-04-26] MEDS: AMLODIPINE 5MG TABLET PO SCH ×2 (09:01→20:40)
[2019-04-26] MEDS: DOCUSATE SODIUM 100MG CAPSULE PO SCH ×2 (09:01→17:02)
[2019-04-26] MEDS: GABAPENTIN 300MG CAPSULE PO SCH ×3 (09:01→17:02)
[2019-04-26] MEDS: INSULIN GLARGINE UD 100 UNITS/ML SYR SUBCUT SCH ×2 (09:06→22:13)
[2019-04-26] MEDS: ACETAMINOPHEN 500MG TABLET PO PRN ×2 (10:39→23:37)
[2019-04-26 12:54] LABS: BASOPHILS % 0.7 % (0.0-2.0); EOSINOPHILS % 5.4 % (0.0-5.0); HEMATOCRIT. 33.8 % (36.0-48.0); HEMOGLOBIN. 11.3 g/dL (12.0-16.0); LYMPHOCYTES % 20.8 % (20.0-50.0); MEAN CORPUSCULAR HEMOGLOBIN 30.8 pg (28.0-32.0); MEAN CORPUSCULAR VOLUME 92.5 fL (81.0-99.0); MEAN PLATELET VOLUME 7.9 fl (7.4-10.4); MONOCYTES % 6.9 % (2.0-8.0); NEUTROPHILS % 66.2 % (40.0-76.0); PLATELET 234 x1000/uL (130-400); RED BLOOD CELL COUNT 3.66 mill/uL (4.2-5.4); RED CELL DISTRIBUTION WIDTH 13.2 % (11.6-14.6)
[2019-04-26 13:11] LABS: CHLORIDE 102 mEq/L (98-107)
[2019-04-26 13:19] LABS: PHOSPHORUS 2.7 mg/dL (2.5-4.9)
[2019-04-26 13:21] LABS: CREATINE KINASE 69 IU/L (26-192)
[2019-04-26 13:22] LABS: CREATINE KINASE MB FRACTION < 1.0 ng/mL (0.5-3.6)
[2019-04-26 20:00] VITALS: BP 123/63
[2019-04-26] MEDS: POLYETHYLENE GLYCOL 3350 (17GM) 1 DOSE PACK PO SCH (21:00)
[2019-04-26] MEDS: GUAIFENESIN-DM 200MG-20MG/10ML UDC PO PRN (23:07)
[2019-04-27] MEDS: IPRATROPIUM/ALBUTEROL 0.5-3(2.5)MG/3ML NEB HHN SCH ×6 (01:14→21:29)
[2019-04-27] MEDS: BLOOD SUGAR DIAGNOSTIC STRIP TEST SCH ×4 (06:14→21:37)
[2019-04-27] MEDS: HYDROCORTISONE 1% OINT 28.35GM TOP SCH ×3 (06:19→21:40)
[2019-04-27] MEDS: INSULIN LISPRO 100 UNITS/ML SUBCUT SCH ×4 (06:46→21:36)
[2019-04-27 06:47] LABS: BASOPHILS % 0.7 % (0.0-2.0); EOSINOPHILS % 5.8 % (0.0-5.0); HEMATOCRIT. 34.3 % (36.0-48.0); HEMOGLOBIN. 11.6 g/dL (12.0-16.0); MEAN CORPUSCULAR HEMOGLOBIN 30.9 pg (28.0-32.0); MEAN CORPUSCULAR VOLUME 91.4 fL (81.0-99.0); MEAN PLATELET VOLUME 8.2 fl (7.4-10.4); MONOCYTES % 8.2 % (2.0-8.0); NEUTROPHILS % 54.3 % (40.0-76.0); PLATELET 216 x1000/uL (130-400); RED BLOOD CELL COUNT 3.75 mill/uL (4.2-5.4); RED CELL DISTRIBUTION WIDTH 13.4 % (11.6-14.6)
[2019-04-27 07:02] LABS: CHLORIDE 103 mEq/L (98-107)
[2019-04-27 08:00] VITALS: BP 116/61
[2019-04-27] MEDS: AMLODIPINE 5MG TABLET PO SCH ×2 (09:00→21:17)
[2019-04-27] MEDS: DOCUSATE SODIUM 100MG CAPSULE PO SCH ×2 (09:16→17:47)
[2019-04-27] MEDS: GABAPENTIN 300MG CAPSULE PO SCH ×3 (09:16→17:47)
[2019-04-27] MEDS: ACETAMINOPHEN 500MG TABLET PO PRN ×2 (09:24→18:13)
[2019-04-27] MEDS: INSULIN GLARGINE UD 100 UNITS/ML SYR SUBCUT SCH ×2 (10:32→21:37)
[2019-04-27] MEDS ORDERED: POTASSIUM CHLORIDE 20MEQ TABLET SR PO NR (11:00)
[2019-04-27] MEDS ORDERED: INSULIN REGULAR (HUMULIN R) 300UNITS/3ML SUBCUT ONE (13:00)
[2019-04-27] MEDS: THROAT LOZENGES-BENZOCAINE/MENTH/CETYLPYRD CL LOZENGES MM PRN ×2 (13:05→17:47)
[2019-04-27 20:00] VITALS: BP 114/59
[2019-04-27] MEDS: POLYETHYLENE GLYCOL 3350 (17GM) 1 DOSE PACK PO SCH (21:15)
[2019-04-27] MEDS: TRAMADOL 50MG TABLET PO PRN (21:16)
[2019-04-28] MEDS: IPRATROPIUM/ALBUTEROL 0.5-3(2.5)MG/3ML NEB HHN SCH ×4 (01:28→11:51)
[2019-04-28] MEDS: HYDROCORTISONE 1% OINT 28.35GM TOP SCH ×2 (06:20→13:11)
[2019-04-28] MEDS: BLOOD SUGAR DIAGNOSTIC STRIP TEST SCH ×2 (06:27→10:42)
[2019-04-28] MEDS: TRAMADOL 50MG TABLET PO PRN (06:31)
[2019-04-28 07:05] LABS: CHLORIDE 103 mEq/L (98-107)
[2019-04-28 07:13] LABS: BASOPHILS % 1.2 % (0.0-2.0); EOSINOPHILS % 5.1 % (0.0-5.0); HEMATOCRIT. 32.4 % (36.0-48.0); HEMOGLOBIN. 11.3 g/dL (12.0-16.0); MEAN CORPUSCULAR HEMOGLOBIN 31.7 pg (28.0-32.0); MEAN CORPUSCULAR VOLUME 91.3 fL (81.0-99.0); NEUTROPHILS % 53.7 % (40.0-76.0); PLATELET 224 x1000/uL (130-400); RED BLOOD CELL COUNT 3.55 mill/uL (4.2-5.4); RED CELL DISTRIBUTION WIDTH 13.3 % (11.6-14.6)
[2019-04-28 08:00] VITALS: BP 120/63
[2019-04-28] MEDS: GABAPENTIN 300MG CAPSULE PO SCH ×2 (08:55→13:09)
[2019-04-28] MEDS: AMLODIPINE 5MG TABLET PO SCH (08:55)
[2019-04-28] MEDS: DOCUSATE SODIUM 100MG CAPSULE PO SCH (08:55)
[2019-04-28] MEDS: INSULIN LISPRO 100 UNITS/ML SUBCUT SCH ×2 (09:37→13:10)
[2019-04-28] MEDS: INSULIN GLARGINE UD 100 UNITS/ML SYR SUBCUT SCH (09:39)
[2019-04-28] MEDS: GUAIFENESIN-DM 200MG-20MG/10ML UDC PO PRN (09:47)
[2019-04-28] MEDS ORDERED: POTASSIUM CHLORIDE 20MEQ TABLET SR PO SCH (14:15)
[2019-04-28 15:18] VITALS: BP 120/63
== END 2019-04-28 15:46 | disposition home health service (06) | DRG 551 ==
PROVIDERS: ADMIT Physical Medicine & Rehabilitation Spinal Cord Injury Medicine; ATTEND Family Medicine Adult Medicine
DX: M47.12 Other spondylosis with myelopathy, cervical region (principal); G82.50 Quadriplegia, unspecified; J96.90 Respiratory failure, unspecified, unspecified whether with hypoxia or hypercapnia; J18.9 Pneumonia, unspecified organism; J98.11 Atelectasis; D64.9 Anemia, unspecified; E11.65 Type 2 diabetes mellitus with hyperglycemia; E78.00 Pure hypercholesterolemia, unspecified; H60.91 Unspecified otitis externa, right ear; E55.9 Vitamin D deficiency, unspecified; R47.02 Dysphasia; R13.10 Dysphagia, unspecified; M48.02 Spinal stenosis, cervical region; M54.12 Radiculopathy, cervical region; E11.40 Type 2 diabetes mellitus with diabetic neuropathy, unspecified; F06.31 Mood disorder due to known physiological condition with depressive features; I10 Essential (primary) hypertension; L29.9 Pruritus, unspecified; M47.9 Spondylosis, unspecified; F32.9 Major depressive disorder, single episode, unspecified; F41.9 Anxiety disorder, unspecified; I25.10 Atherosclerotic heart disease of native coronary artery without angina pectoris; R26.9 Unspecified abnormalities of gait and mobility; Z82.49 Family history of ischemic heart disease and other diseases of the circulatory system; Z88.5 Allergy status to narcotic agent; Z83.3 Family history of diabetes mellitus; Z91.048 Other nonmedicinal substance allergy status; Z98.1 Arthrodesis status; Z88.8 Allergy status to other drugs, medicaments and biological substances
CPT/HCPCS: 36415; 71045; 78582; 80048; 81003; 82306; 82550; 82553; 82607; 82728; 82746; 82962; 83540; 83550; 83735; 84100; 84134; 84443; 84484; 92610; 93005; 93970; 94640; 97110; 97112; 97116; 97162; 97166; 97530; 97535; A9558; J1815; J7608; J7620; L0172

== ENCOUNTER → 2020-05-02 | Outpatient (CLI) | payer MEDICARE, MEDICAID ==
[~2020-05-02] MED LIST changes: -ASPI-1393 PO; +ASPI-1497 PO
== END | disposition home or self-care (01) ==
LOC: MRI 08:25
PROVIDERS: ATTEND Neurological Surgery
DX: M47.817 Spondylosis without myelopathy or radiculopathy, lumbosacral region (principal); M47.812 Spondylosis without myelopathy or radiculopathy, cervical region; M48.07 Spinal stenosis, lumbosacral region; M25.78 Osteophyte, vertebrae; M48.02 Spinal stenosis, cervical region; Z98.1 Arthrodesis status
CPT/HCPCS: 72141; 72148

== ENCOUNTER → 2020-05-30 | Outpatient (CLI) | payer MEDICARE, MEDICAID | END | disposition home or self-care (01) | LOC: MRI 09:38 | PROVIDERS: ATTEND Neurological Surgery | DX: M51.24 Other intervertebral disc displacement, thoracic region (principal) | CPT/HCPCS: 72146; Q9967 ==

== ENCOUNTER → 2020-10-24 | Outpatient (CLI) | payer MEDICARE, MEDICAID ==
[~2020-10-24] MED LIST changes: -GABA-531 PO; +GABA-532 PO
== END | disposition home or self-care (01) ==
LOC: MRI 10:35
PROVIDERS: ATTEND Neurological Surgery
DX: M19.011 Primary osteoarthritis, right shoulder (principal); M75.111 Incomplete rotator cuff tear or rupture of right shoulder, not specified as traumatic; M25.411 Effusion, right shoulder
CPT/HCPCS: 73221

== ENCOUNTER → 2021-12-13 | Outpatient (CLI) | payer MEDICARE, MEDICAID ==
[~2021-12-13] MED LIST changes: +ERGO1250 PO; +HYDR200T35 PO; +INSU100I43 SUBCUT; +LORA10TA7 PO; +OMEP20CA14 PO; +PRAV20TA57 PO
[2021-12-13 10:34] LABS: CLARITY URINE CLEAR (CLEAR); COLOR URINE YELLOW (YELLOW); KETONES URINE TRACE (NEGATIVE); LEUKOCYTE ESTERASE URINE NEGATIVE (NEGATIVE); NITRITE URINE NEGATIVE (NEGATIVE); OCCULT BLOOD URINE NEGATIVE (NEGATIVE); PROTEIN URINE TRACE (NEGATIVE); SPECIFIC GRAVITY URINE 1.029 (1.005-1.030); UROBILINOGEN URINE 0.2 E.U./dL (0.2-1.0)
[2021-12-13 10:39] LABS: PARTIAL THROMBOPLASTIN TIME 26.4 sec (23.4-31.0); PROTHROMBIN TIME 10.4 sec (9.6-11.0)
== END | disposition home or self-care (01) ==
LOC: RAD 09:11
PROVIDERS: ATTEND Neurological Surgery
DX: Z01.812 Encounter for preprocedural laboratory examination (principal); Z20.822 Contact with and (suspected) exposure to COVID-19; M47.814 Spondylosis without myelopathy or radiculopathy, thoracic region; M54.50 Low back pain, unspecified; M43.06 Spondylolysis, lumbar region
CPT/HCPCS: 36415; 71046; 81003; 86850; 86900; 87426

== ENCOUNTER 2021-12-16 05:15 | Inpatient (IN) | payer MEDICARE, MEDICAID ==
[2021-12-16] VITALS (51 sets, daily range): BP systolic 81–133; BP diastolic 37–94
[~2021-12-16] VITALS: Ht 165.1 cm; Wt 89.0 kg
[~2021-12-16 05:15] MED LIST changes: -AMLO10TA80 PO; -HYDR25TA PO; -INSNOV SUBCUT
[2021-12-16] MEDS ORDERED: SODIUM CHLORIDE 0.9% 1,000 ML IV SCH (06:00)
[2021-12-16] MEDS ORDERED: LIDOCAINE HCL/EPINEPHRINE 1%-EPI 1:100,000 20 ML VIAL ONE (06:29)
[2021-12-16] MEDS ORDERED: THROMBIN (BOVINE) 5000 UNITS/VIAL TOP ONE (06:29)
[2021-12-16] MEDS ORDERED: GENTAMICIN SULF 40MG/ML 2ML VIAL ONE (06:30)
[2021-12-16] MEDS ORDERED: HYDROMORPHONE HCL/PF 2MG/ML CPJ IV PRN ×2 (07:30→10:50)
[2021-12-16] MEDS ORDERED: NICARDIPINE 100 MG in SODIUM CHLORIDE 0.9% 60 ML IV PRN (10:30)
[2021-12-16] MEDS ORDERED: ONDANSETRON INJ IV PRN (10:30)
[2021-12-16] MEDS ORDERED: NALOXONE INJ IV PRN (10:30)
[2021-12-16] MEDS: DEXT 5%/LACTATED RINGERS 1,000 ML IV SCH ×2 (10:59→18:29)
[2021-12-16] MEDS ORDERED: SODIUM CHLORIDE 0.9% 1000ML BAG (SEPSIS BOLUS) IV ONE (11:15)
[2021-12-16] MEDS ORDERED: NOREPINEPHRINE 8 MG in DEXT 5% WATER 242 ML IV PRN (11:15)
[2021-12-16] MEDS ORDERED: DEXTROSE 50% WATER 50ML SYRINGE IV PRN (11:15)
[2021-12-16] MEDS ORDERED: HYDROMORPHONE PCA 10MG/50ML IV PRN (11:30)
[2021-12-16] MEDS: BLOOD SUGAR DIAGNOSTIC STRIP TEST SCH ×3 (11:38→21:00)
[2021-12-16] MEDS: INSULIN LISPRO 100 UNITS/ML SUBCUT SCH ×3 (12:31→21:47)
[2021-12-16] MEDS ORDERED: CEFAZOLIN SODIUM 1000MG/VIAL IV SCH (14:00)
[2021-12-16] MEDS: CEFAZOLIN 1000MG PREMIX 50 ML IV SCH ×2 (14:39→21:48)
[2021-12-16 15:58] LABS: CLARITY URINE CLEAR (CLEAR); COLOR URINE YELLOW (YELLOW); KETONES URINE NEGATIVE (NEGATIVE); LEUKOCYTE ESTERASE URINE NEGATIVE (NEGATIVE); NITRITE URINE NEGATIVE (NEGATIVE); OCCULT BLOOD URINE 1+ (NEGATIVE); PH URINE 6.5 (4.5-8.0); PROTEIN URINE NEGATIVE (NEGATIVE); SPECIFIC GRAVITY URINE 1.031 (1.005-1.030)
[2021-12-16] MEDS: DIPHENHYDRAMINE 50MG/ML VIAL IV PRN (21:47)
[2021-12-17] VITALS (24 sets, daily range): BP systolic 94–133; BP diastolic 47–81
[2021-12-17] MEDS: DEXT 5%/LACTATED RINGERS 1,000 ML IV SCH ×3 (04:06→17:49)
[2021-12-17] MEDS: BLOOD SUGAR DIAGNOSTIC STRIP TEST SCH ×4 (05:57→20:12)
[2021-12-17] MEDS: CEFAZOLIN 1000MG PREMIX 50 ML IV SCH ×3 (05:57→21:01)
[2021-12-17] MEDS: INSULIN LISPRO 100 UNITS/ML SUBCUT SCH ×4 (05:58→21:30)
[2021-12-17 06:00] LABS: BASOPHILS % 0.1 % (0.0-2.0); HEMATOCRIT. 36.7 % (36.0-48.0); HEMOGLOBIN. 11.8 g/dL (12.0-16.0); LYMPHOCYTES % 10.4 % (20.0-50.0); MEAN CORPUSCULAR HEMOGLOBIN 30.3 pg (28.0-32.0); MEAN CORPUSCULAR VOLUME 94.4 fL (81.0-99.0); MEAN PLATELET VOLUME 8.9 fl (7.4-10.4); MONOCYTES % 7.8 % (2.0-8.0); NEUTROPHILS % 81.7 % (40.0-76.0); PLATELET 231 x1000/uL (130-400); RED BLOOD CELL COUNT 3.89 mill/uL (4.2-5.4)
[2021-12-17 06:24] LABS: CHLORIDE 111 mEq/L (98-107)
[2021-12-17] MEDS ORDERED: PNEUMOCOCCAL 23-VAL P-SAC VAC 0.5 ML IM ONE (09:00)
[2021-12-17] MEDS: DIPHENHYDRAMINE 50MG/ML VIAL IV PRN (10:02)
[2021-12-17] MEDS: LOSARTAN POTASSIUM 100 MG TABLET PO SCH (10:04)
[2021-12-17] MEDS: LORATADINE 10MG TABLET PO SCH (10:05)
[2021-12-17] MEDS: OMEPRAZOLE 20MG CAPSULE EXTENDED RELEASE PO SCH (10:05)
[2021-12-17] MEDS: HYDROCODONE/APAP 7.5/325MG 1 TAB TABLET PO PRN ×2 (17:44→22:08)
[2021-12-17] MEDS: ATORVASTATIN CALCIUM 20MG TABLET PO SCH (21:27)
[2021-12-18] VITALS: BP 100/41
[2021-12-18] MEDS: DEXT 5%/LACTATED RINGERS 1,000 ML IV SCH ×3 (02:25→17:48)
[2021-12-18 04:00] VITALS: BP 127/79
[2021-12-18] MEDS: CEFAZOLIN 1000MG PREMIX 50 ML IV SCH ×2 (05:27→15:34)
[2021-12-18] MEDS: OMEPRAZOLE 20MG CAPSULE EXTENDED RELEASE PO SCH (06:26)
[2021-12-18] MEDS: HYDROCODONE/APAP 7.5/325MG 1 TAB TABLET PO PRN ×4 (06:27→20:38)
[2021-12-18] MEDS: BLOOD SUGAR DIAGNOSTIC STRIP TEST SCH ×4 (06:36→20:18)
[2021-12-18 08:00] VITALS: BP 116/54
[2021-12-18 08:16] LABS: BASOPHILS % 0.5 % (0.0-2.0); EOSINOPHILS % 1.6 % (0.0-5.0); HEMOGLOBIN. 10.3 g/dL (12.0-16.0); MEAN CORPUSCULAR HEMOGLOBIN 29.7 pg (28.0-32.0); MEAN CORPUSCULAR VOLUME 89.6 fL (81.0-99.0); MEAN PLATELET VOLUME 9.7 fl (7.4-10.4); MONOCYTES % 6.7 % (2.0-8.0); NEUTROPHILS % 73.2 % (40.0-76.0); PLATELET 123 x1000/uL (130-400); RED BLOOD CELL COUNT 3.46 mill/uL (4.2-5.4); RED CELL DISTRIBUTION WIDTH 14.8 % (11.6-14.6)
[2021-12-18 08:27] LABS: CHLORIDE 111 mEq/L (98-107)
[2021-12-18 08:35] LABS: HDL CHOLESTEROL 65 mg/dL (40-59); LDL CHOLESTEROL 36 mg/dL (5-100)
[2021-12-18] MEDS: LORATADINE 10MG TABLET PO SCH (09:00)
[2021-12-18] MEDS: LOSARTAN POTASSIUM 100 MG TABLET PO SCH (09:17)
[2021-12-18] MEDS: INSULIN LISPRO 100 UNITS/ML SUBCUT SCH ×4 (09:24→20:45)
[2021-12-18 12:00] VITALS: BP 121/61
[2021-12-18 16:00] VITALS: BP 112/64
[2021-12-18] MEDS: DOCUSATE SODIUM 100MG CAPSULE PO SCH (17:47)
[2021-12-18] MEDS ORDERED: MAGNESIUM CITRATE 300ML SOLUTION PO NR (18:00)
[2021-12-18 20:00] VITALS: BP 130/69
[2021-12-18] MEDS: ATORVASTATIN CALCIUM 20MG TABLET PO SCH (20:38)
[2021-12-19] VITALS: BP 127/76
[2021-12-19] MEDS: DEXT 5%/LACTATED RINGERS 1,000 ML IV SCH ×3 (03:16→19:05)
[2021-12-19] MEDS: HYDROCODONE/APAP 7.5/325MG 1 TAB TABLET PO PRN ×3 (03:28→22:39)
[2021-12-19 04:00] VITALS: BP 112/49
[2021-12-19] MEDS: OMEPRAZOLE 20MG CAPSULE EXTENDED RELEASE PO SCH (06:26)
[2021-12-19] MEDS: BLOOD SUGAR DIAGNOSTIC STRIP TEST SCH ×4 (06:26→21:00)
[2021-12-19 07:37] LABS: BASOPHILS % 0.5 % (0.0-2.0); EOSINOPHILS % 2.9 % (0.0-5.0); HEMATOCRIT. 32.7 % (36.0-48.0); HEMOGLOBIN. 11.3 g/dL (12.0-16.0); MEAN CORPUSCULAR HEMOGLOBIN 30.6 pg (28.0-32.0); MEAN CORPUSCULAR VOLUME 88.8 fL (81.0-99.0); MEAN PLATELET VOLUME 8.6 fl (7.4-10.4); NEUTROPHILS % 64.6 % (40.0-76.0); PLATELET 173 x1000/uL (130-400); RED BLOOD CELL COUNT 3.69 mill/uL (4.2-5.4); RED CELL DISTRIBUTION WIDTH 14.1 % (11.6-14.6)
[2021-12-19 07:47] LABS: CHLORIDE 105 mEq/L (98-107)
[2021-12-19 08:00] VITALS: BP 135/62
[2021-12-19] MEDS: LOSARTAN POTASSIUM 100 MG TABLET PO SCH (08:17)
[2021-12-19] MEDS: DOCUSATE SODIUM 100MG CAPSULE PO SCH ×2 (08:18→18:59)
[2021-12-19] MEDS: LORATADINE 10MG TABLET PO SCH (08:18)
[2021-12-19] MEDS: INSULIN LISPRO 100 UNITS/ML SUBCUT SCH ×4 (08:22→22:42)
[2021-12-19 11:48] VITALS: BP 135/58
[2021-12-19 16:00] VITALS: BP 138/55
[2021-12-19 20:00] VITALS: BP 143/75
[2021-12-19] MEDS: ATORVASTATIN CALCIUM 20MG TABLET PO SCH (22:40)
[2021-12-20] VITALS (7 sets, daily range): BP systolic 118–138; BP diastolic 52–73
[2021-12-20] MEDS: DEXT 5%/LACTATED RINGERS 1,000 ML IV SCH ×3 (02:43→18:43)
[2021-12-20 07:09] LABS: BASOPHILS % 0.5 % (0.0-2.0); EOSINOPHILS % 6.3 % (0.0-5.0); HEMATOCRIT. 33.7 % (36.0-48.0); HEMOGLOBIN. 11.7 g/dL (12.0-16.0); LYMPHOCYTES % 29.6 % (20.0-50.0); MEAN CORPUSCULAR HEMOGLOBIN 30.5 pg (28.0-32.0); MEAN CORPUSCULAR VOLUME 87.8 fL (81.0-99.0); MEAN PLATELET VOLUME 8.9 fl (7.4-10.4); MONOCYTES % 7.8 % (2.0-8.0); NEUTROPHILS % 55.8 % (40.0-76.0); PLATELET 190 x1000/uL (130-400); RED BLOOD CELL COUNT 3.83 mill/uL (4.2-5.4); RED CELL DISTRIBUTION WIDTH 13.8 % (11.6-14.6)
[2021-12-20 07:10] LABS: CHLORIDE 104 mEq/L (98-107)
[2021-12-20] MEDS: FAMOTIDINE 20MG TABLET PO SCH ×2 (07:14→17:30)
[2021-12-20] MEDS: BLOOD SUGAR DIAGNOSTIC STRIP TEST SCH ×4 (07:17→21:32)
[2021-12-20] MEDS: INSULIN LISPRO 100 UNITS/ML SUBCUT SCH ×4 (09:20→21:31)
[2021-12-20] MEDS: DOCUSATE SODIUM 100MG CAPSULE PO SCH ×2 (09:24→17:30)
[2021-12-20] MEDS: HYDROCODONE/APAP 7.5/325MG 1 TAB TABLET PO PRN ×3 (09:25→21:48)
[2021-12-20] MEDS: LOSARTAN POTASSIUM 100 MG TABLET PO SCH (09:26)
[2021-12-20] MEDS: LORATADINE 10MG TABLET PO SCH (09:26)
[2021-12-20] MEDS: ATORVASTATIN CALCIUM 20MG TABLET PO SCH (21:30)
== END 2021-12-20 22:59 | DRG 460 ==
LOC: OR 05:15 → MICUSO 05:16 → 6EST 12-17 10:15
PROVIDERS: ADMIT Internal Medicine; ATTEND Internal Medicine
PROC: 0SG00J1 Fusion of Lumbar Vertebral Joint with Synthetic Substitute, Posterior Approach, Posterior Column, Open Approach (ICD-10-PCS; principal; 2021-12-16)
PROC: 00NY0ZZ Release Lumbar Spinal Cord, Open Approach (ICD-10-PCS; 2021-12-16)
PROC: 4A11X4G Monitoring of Peripheral Nervous Electrical Activity, Intraoperative, External Approach (ICD-10-PCS; 2021-12-16)
DX: M48.061 Spinal stenosis, lumbar region without neurogenic claudication (principal); M47.816 Spondylosis without myelopathy or radiculopathy, lumbar region; E11.9 Type 2 diabetes mellitus without complications; E78.00 Pure hypercholesterolemia, unspecified; E78.5 Hyperlipidemia, unspecified; R26.9 Unspecified abnormalities of gait and mobility; R53.81 Other malaise; D64.9 Anemia, unspecified; M43.16 Spondylolisthesis, lumbar region; I10 Essential (primary) hypertension; Z79.4 Long term (current) use of insulin; Z79.899 Other long term (current) drug therapy; Z82.49 Family history of ischemic heart disease and other diseases of the circulatory system; Z83.3 Family history of diabetes mellitus; Z88.5 Allergy status to narcotic agent
CPT/HCPCS: 36415; 71046; 72100; 76000; 80048; 80061; 81003; 82962; 83036; 85025; 86850; 86900; 87426; 90732; 94002; 95863; 95925; 95926; 95928; 95929; 97110; 97116; 97162; 97166; 97530; 97535; 97760; C1713; J0690; J1100; J1170; J1200; J1580; J1815; J2250; J2405; J2704; J2710; J3010; J3490; J7121; C1762

== ENCOUNTER 2021-12-20 23:05 | Inpatient (IN) | payer MEDICARE, MEDICAID ==
[~2021-12-20] VITALS: Ht 152.4 cm; Wt 88.9 kg
[2021-12-20 23:05] VITALS: BP 140/64
[2021-12-20] MEDS ORDERED: ONDANSETRON HCL 4MG TABLET PO PRN (23:45)
[2021-12-20] MEDS ORDERED: NALOXONE HCL 0.4MG/ML VIAL IV PRN (23:45)
[2021-12-20] MEDS ORDERED: DIPHENHYDRAMINE 50MG/ML VIAL IV PRN (23:45)
[2021-12-21] MEDS ORDERED: DEXTROSE 50% WATER 50ML SYRINGE IV PRN
[2021-12-21 00:23] VITALS: BP 140/64
[2021-12-21 01:55] VITALS: BP 140/64
[2021-12-21] MEDS: HYDROCODONE/APAP 7.5/325MG 1 TAB TABLET PO PRN ×4 (03:23→17:51)
[2021-12-21] MEDS: DEXT 5%/LACTATED RINGERS 1,000 ML IV SCH ×2 (04:00→11:16)
[2021-12-21] MEDS: BLOOD SUGAR DIAGNOSTIC STRIP TEST SCH ×4 (06:30→20:39)
[2021-12-21 07:36] LABS: BASOPHILS % 0.7 % (0.0-2.0); EOSINOPHILS % 8.9 % (0.0-5.0); HEMATOCRIT. 35.1 % (36.0-48.0); HEMOGLOBIN. 11.8 g/dL (12.0-16.0); MEAN CORPUSCULAR HEMOGLOBIN 30.4 pg (28.0-32.0); MEAN PLATELET VOLUME 8.5 fl (7.4-10.4); MONOCYTES % 8.6 % (2.0-8.0); NEUTROPHILS % 49.8 % (40.0-76.0); PLATELET 227 x1000/uL (130-400); RED CELL DISTRIBUTION WIDTH 13.7 % (11.6-14.6)
[2021-12-21] MEDS: FAMOTIDINE 20MG TABLET PO SCH ×2 (07:36→17:51)
[2021-12-21 07:51] LABS: CHLORIDE 106 mEq/L (98-107)
[2021-12-21 08:00] VITALS: BP 122/55
[2021-12-21] MEDS: INSULIN LISPRO 100 UNITS/ML SUBCUT SCH ×4 (09:00→20:48)
[2021-12-21] MEDS: DOCUSATE SODIUM 100MG CAPSULE PO SCH ×2 (09:17→17:50)
[2021-12-21] MEDS: LORATADINE 10MG TABLET PO SCH (09:17)
[2021-12-21] MEDS: LOSARTAN POTASSIUM 100 MG TABLET PO SCH (09:17)
[2021-12-21] MEDS ORDERED: INFLUENZA VACCINE 05/PF 0.5 ML SYRINGE IM ONE (12:00)
[2021-12-21 20:00] VITALS: BP 156/74
[2021-12-21] MEDS: ATORVASTATIN CALCIUM 20MG TABLET PO SCH (20:35)
[2021-12-22] MEDS: HYDROCODONE/APAP 7.5/325MG 1 TAB TABLET PO PRN ×3 (00:47→19:26)
[2021-12-22] MEDS: FAMOTIDINE 20MG TABLET PO SCH ×2 (06:23→16:45)
[2021-12-22] MEDS: BLOOD SUGAR DIAGNOSTIC STRIP TEST SCH ×4 (06:26→20:36)
[2021-12-22 08:00] VITALS: BP 130/66
[2021-12-22] MEDS: INSULIN LISPRO 100 UNITS/ML SUBCUT SCH ×4 (08:10→20:52)
[2021-12-22 10:46] LABS: FERRITIN 88 ng/mL (10-291)
[2021-12-22 11:51] LABS: VITAMIN B12 SERUM 1081 pg/mL (211-911)
[2021-12-22 11:55] LABS: FOLIC ACID (FOLATE) SERUM > 20.00 ng/mL (>5.38)
[2021-12-22] MEDS: LORATADINE 10MG TABLET PO SCH (12:42)
[2021-12-22] MEDS: LOSARTAN POTASSIUM 100 MG TABLET PO SCH (12:42)
[2021-12-22] MEDS: FERROUS SULFATE 325MG TABLET PO SCH ×3 (12:42→16:45)
[2021-12-22] MEDS: ASCORBIC ACID 500 MG TABLET PO SCH (12:42)
[2021-12-22] MEDS: DOCUSATE SODIUM 100MG CAPSULE PO SCH ×2 (12:42→16:45)
[2021-12-22 20:00] VITALS: BP 127/55
[2021-12-22] MEDS: ATORVASTATIN CALCIUM 20MG TABLET PO SCH (20:32)
[2021-12-23] MEDS: HYDROCODONE/APAP 7.5/325MG 1 TAB TABLET PO PRN ×5 (03:50→23:35)
[2021-12-23] MEDS: BLOOD SUGAR DIAGNOSTIC STRIP TEST SCH ×4 (06:15→20:49)
[2021-12-23] MEDS: FAMOTIDINE 20MG TABLET PO SCH ×2 (06:16→17:55)
[2021-12-23 07:53] VITALS: BP 120/60
[2021-12-23] MEDS: DOCUSATE SODIUM 100MG CAPSULE PO SCH ×2 (08:09→17:57)
[2021-12-23] MEDS: ASCORBIC ACID 500 MG TABLET PO SCH (08:09)
[2021-12-23] MEDS: LOSARTAN POTASSIUM 100 MG TABLET PO SCH (08:10)
[2021-12-23] MEDS: FERROUS SULFATE 325MG TABLET PO SCH ×3 (08:10→17:53)
[2021-12-23] MEDS: LORATADINE 10MG TABLET PO SCH (08:10)
[2021-12-23] MEDS: INSULIN LISPRO 100 UNITS/ML SUBCUT SCH ×4 (08:13→22:17)
[2021-12-23] MEDS ORDERED: BISACODYL 10MG SUPP PR PRN (11:15)
[2021-12-23] MEDS ORDERED: LACTULOSE 20G/30ML UDC PO PRN (11:15)
[2021-12-23 20:00] VITALS: BP 122/59
[2021-12-23] MEDS: ATORVASTATIN CALCIUM 20MG TABLET PO SCH (20:50)
[2021-12-24] MEDS: BLOOD SUGAR DIAGNOSTIC STRIP TEST SCH ×4 (05:14→21:00)
[2021-12-24] MEDS: FAMOTIDINE 20MG TABLET PO SCH ×2 (06:31→17:56)
[2021-12-24 08:00] VITALS: BP 137/67
[2021-12-24] MEDS: INSULIN LISPRO 100 UNITS/ML SUBCUT SCH ×4 (09:00→22:17)
[2021-12-24] MEDS: FERROUS SULFATE 325MG TABLET PO SCH ×3 (09:23→17:56)
[2021-12-24] MEDS: ASCORBIC ACID 500 MG TABLET PO SCH (09:23)
[2021-12-24] MEDS: LOSARTAN POTASSIUM 100 MG TABLET PO SCH (09:23)
[2021-12-24] MEDS: LORATADINE 10MG TABLET PO SCH (09:23)
[2021-12-24] MEDS: DOCUSATE SODIUM 100MG CAPSULE PO SCH ×2 (09:23→17:56)
[2021-12-24] MEDS: HYDROCODONE/APAP 7.5/325MG 1 TAB TABLET PO PRN ×2 (10:34→22:26)
[2021-12-24] MEDS: METFORMIN HCL 500MG TABLET PO SCH (17:56)
[2021-12-24 20:00] VITALS: BP 148/71
[2021-12-24] MEDS: ATORVASTATIN CALCIUM 20MG TABLET PO SCH (22:12)
[2021-12-25] MEDS: HYDROCODONE/APAP 7.5/325MG 1 TAB TABLET PO PRN ×3 (04:25→17:53)
[2021-12-25] MEDS: BLOOD SUGAR DIAGNOSTIC STRIP TEST SCH ×4 (06:39→21:00)
[2021-12-25] MEDS: FAMOTIDINE 20MG TABLET PO SCH ×2 (06:40→17:52)
[2021-12-25 07:34] LABS: BASOPHILS % 0.8 % (0.0-2.0); HEMATOCRIT. 34.5 % (36.0-48.0); HEMOGLOBIN. 11.6 g/dL (12.0-16.0); MEAN CORPUSCULAR HEMOGLOBIN 30.1 pg (28.0-32.0); MEAN CORPUSCULAR VOLUME 89.4 fL (81.0-99.0); MEAN PLATELET VOLUME 8.2 fl (7.4-10.4); MONOCYTES % 10.7 % (2.0-8.0); NEUTROPHILS % 54.5 % (40.0-76.0); PLATELET 343 x1000/uL (130-400); RED BLOOD CELL COUNT 3.86 mill/uL (4.2-5.4); RED CELL DISTRIBUTION WIDTH 13.9 % (11.6-14.6)
[2021-12-25 07:52] LABS: CHLORIDE 101 mEq/L (98-107)
[2021-12-25 08:00] VITALS: BP 108/38
[2021-12-25] MEDS: ASCORBIC ACID 500 MG TABLET PO SCH (08:29)
[2021-12-25] MEDS: METFORMIN HCL 500MG TABLET PO SCH ×2 (08:29→17:53)
[2021-12-25] MEDS: DOCUSATE SODIUM 100MG CAPSULE PO SCH ×2 (08:30→17:52)
[2021-12-25] MEDS: FERROUS SULFATE 325MG TABLET PO SCH ×3 (08:30→17:52)
[2021-12-25] MEDS: LOSARTAN POTASSIUM 100 MG TABLET PO SCH (08:30)
[2021-12-25] MEDS: LORATADINE 10MG TABLET PO SCH (08:30)
[2021-12-25] MEDS: INSULIN LISPRO 100 UNITS/ML SUBCUT SCH ×4 (09:00→21:00)
[2021-12-25] MEDS ORDERED: DIPHENHYDRAMINE 50MG CAPSULE PO PRN (15:15)
[2021-12-25 20:00] VITALS: BP 140/71
[2021-12-25] MEDS: ATORVASTATIN CALCIUM 20MG TABLET PO SCH (20:56)
[2021-12-26] MEDS: HYDROCODONE/APAP 7.5/325MG 1 TAB TABLET PO PRN ×3 (01:03→18:00)
[2021-12-26] MEDS ORDERED: NALOXONE HCL 0.4MG/ML VIAL IV PRN (01:15)
[2021-12-26] MEDS: BLOOD SUGAR DIAGNOSTIC STRIP TEST SCH ×4 (06:18→20:45)
[2021-12-26] MEDS: INSULIN LISPRO 100 UNITS/ML SUBCUT SCH ×4 (06:19→21:02)
[2021-12-26] MEDS: FAMOTIDINE 20MG TABLET PO SCH ×2 (06:23→17:54)
[2021-12-26 07:47] VITALS: BP 148/68
[2021-12-26] MEDS: LOSARTAN POTASSIUM 100 MG TABLET PO SCH (11:34)
[2021-12-26] MEDS: METFORMIN HCL 500MG TABLET PO SCH ×2 (11:34→18:45)
[2021-12-26] MEDS: LORATADINE 10MG TABLET PO SCH (11:34)
[2021-12-26] MEDS: ASCORBIC ACID 500 MG TABLET PO SCH (11:34)
[2021-12-26] MEDS: FERROUS SULFATE 325MG TABLET PO SCH ×3 (11:34→17:54)
[2021-12-26] MEDS: DOCUSATE SODIUM 100MG CAPSULE PO SCH ×2 (11:34→17:54)
[2021-12-26 18:42] LABS: CLARITY URINE CLEAR (CLEAR); COLOR URINE YELLOW (YELLOW); KETONES URINE NEGATIVE (NEGATIVE); LEUKOCYTE ESTERASE URINE NEGATIVE (NEGATIVE); NITRITE URINE NEGATIVE (NEGATIVE); OCCULT BLOOD URINE NEGATIVE (NEGATIVE); PROTEIN URINE NEGATIVE (NEGATIVE); SPECIFIC GRAVITY URINE 1.009 (1.005-1.030)
[2021-12-26 20:00] VITALS: BP 145/67
[2021-12-26] MEDS: ATORVASTATIN CALCIUM 20MG TABLET PO SCH (21:00)
[2021-12-27] MEDS: HYDROCODONE/APAP 7.5/325MG 1 TAB TABLET PO PRN ×5 (00:07→22:35)
[2021-12-27] MEDS: FAMOTIDINE 20MG TABLET PO SCH ×2 (06:15→16:26)
[2021-12-27] MEDS: BLOOD SUGAR DIAGNOSTIC STRIP TEST SCH ×4 (06:16→21:00)
[2021-12-27 08:00] VITALS: BP 131/66
[2021-12-27] MEDS: FERROUS SULFATE 325MG TABLET PO SCH ×3 (09:20→16:25)
[2021-12-27] MEDS: DOCUSATE SODIUM 100MG CAPSULE PO SCH ×2 (09:20→16:25)
[2021-12-27] MEDS: INSULIN LISPRO 100 UNITS/ML SUBCUT SCH ×4 (10:16→22:40)
[2021-12-27] MEDS: METFORMIN HCL 500MG TABLET PO SCH ×2 (11:45→16:25)
[2021-12-27] MEDS: LORATADINE 10MG TABLET PO SCH (11:45)
[2021-12-27] MEDS: LOSARTAN POTASSIUM 100 MG TABLET PO SCH (11:46)
[2021-12-27] MEDS: ASCORBIC ACID 500 MG TABLET PO SCH (12:58)
[2021-12-27] MEDS: DIPHENHYDRAMINE HCL/ZINC ACET 28 GM CREAM TOP SCH (18:23)
[2021-12-27 20:00] VITALS: BP 111/72
[2021-12-27] MEDS: ATORVASTATIN CALCIUM 20MG TABLET PO SCH (22:11)
[2021-12-28] MEDS: BLOOD SUGAR DIAGNOSTIC STRIP TEST SCH ×4 (06:25→20:19)
[2021-12-28] MEDS: FAMOTIDINE 20MG TABLET PO SCH ×2 (06:25→17:53)
[2021-12-28] MEDS: INSULIN LISPRO 100 UNITS/ML SUBCUT SCH ×4 (06:54→20:49)
[2021-12-28 07:53] VITALS: BP 129/71
[2021-12-28] MEDS: METFORMIN HCL 500MG TABLET PO SCH ×2 (09:00→17:00)
[2021-12-28] MEDS: ASCORBIC ACID 500 MG TABLET PO SCH (10:30)
[2021-12-28] MEDS: DOCUSATE SODIUM 100MG CAPSULE PO SCH ×2 (10:30→17:53)
[2021-12-28] MEDS: LORATADINE 10MG TABLET PO SCH (10:30)
[2021-12-28] MEDS: FERROUS SULFATE 325MG TABLET PO SCH ×3 (10:30→17:53)
[2021-12-28] MEDS: LOSARTAN POTASSIUM 100 MG TABLET PO SCH (10:30)
[2021-12-28] MEDS: HYDROCODONE/APAP 7.5/325MG 1 TAB TABLET PO PRN ×2 (10:36→20:15)
[2021-12-28] MEDS: DIPHENHYDRAMINE HCL/ZINC ACET 28 GM CREAM TOP SCH ×3 (10:37→17:54)
[2021-12-28 20:00] VITALS: BP 135/67
[2021-12-28] MEDS: ATORVASTATIN CALCIUM 20MG TABLET PO SCH (20:15)
[2021-12-29] MEDS: HYDROCODONE/APAP 7.5/325MG 1 TAB TABLET PO PRN ×4 (03:38→21:56)
[2021-12-29] MEDS: FAMOTIDINE 20MG TABLET PO SCH ×3 (06:14→21:49)
[2021-12-29] MEDS: BLOOD SUGAR DIAGNOSTIC STRIP TEST SCH ×4 (06:17→21:49)
[2021-12-29 08:00] VITALS: BP 108/66
[2021-12-29] MEDS: LOSARTAN POTASSIUM 100 MG TABLET PO SCH (09:00)
[2021-12-29] MEDS: INSULIN LISPRO 100 UNITS/ML SUBCUT SCH ×4 (09:00→21:52)
[2021-12-29] MEDS: METFORMIN HCL 500MG TABLET PO SCH ×2 (09:00→17:28)
[2021-12-29] MEDS: FERROUS SULFATE 325MG TABLET PO SCH ×3 (09:13→17:28)
[2021-12-29] MEDS: LORATADINE 10MG TABLET PO SCH (09:13)
[2021-12-29] MEDS: ASCORBIC ACID 500 MG TABLET PO SCH (09:13)
[2021-12-29] MEDS: DOCUSATE SODIUM 100MG CAPSULE PO SCH ×2 (09:13→17:28)
[2021-12-29] MEDS: DIPHENHYDRAMINE HCL/ZINC ACET 28 GM CREAM TOP SCH ×3 (09:14→17:28)
[2021-12-29] MEDS: LIDOCAINE 5% PATCH TOP SCH (13:14)
[2021-12-29 20:00] VITALS: BP 130/73
[2021-12-29] MEDS: ATORVASTATIN CALCIUM 20MG TABLET PO SCH (21:49)
[2021-12-30 04:07] LABS: 25-HYDROXY VITAMIN D3 29 ng/mL (.)
[2021-12-30] MEDS: BLOOD SUGAR DIAGNOSTIC STRIP TEST SCH ×4 (06:14→21:00)
[2021-12-30] MEDS: HYDROCODONE/APAP 7.5/325MG 1 TAB TABLET PO PRN ×2 (06:15→23:13)
[2021-12-30] MEDS: INSULIN LISPRO 100 UNITS/ML SUBCUT SCH ×4 (06:22→23:14)
[2021-12-30 08:00] VITALS: BP 144/72
[2021-12-30] MEDS: LORATADINE 10MG TABLET PO SCH (10:01)
[2021-12-30] MEDS: LIDOCAINE 5% PATCH TOP SCH (10:01)
[2021-12-30] MEDS: DOCUSATE SODIUM 100MG CAPSULE PO SCH ×2 (10:01→18:06)
[2021-12-30] MEDS: METFORMIN HCL 500MG TABLET PO SCH ×2 (10:01→18:05)
[2021-12-30] MEDS: ASCORBIC ACID 500 MG TABLET PO SCH (10:01)
[2021-12-30] MEDS: FERROUS SULFATE 325MG TABLET PO SCH ×3 (10:01→18:06)
[2021-12-30] MEDS: DIPHENHYDRAMINE HCL/ZINC ACET 28 GM CREAM TOP SCH ×3 (10:03→18:07)
[2021-12-30] MEDS: LOSARTAN POTASSIUM 100 MG TABLET PO SCH (10:09)
[2021-12-30] MEDS ORDERED: ERGOCALCIFEROL 50000UNITS CAPSULE PO SCH (15:00)
[2021-12-30] MEDS: FAMOTIDINE 20MG TABLET PO SCH (18:06)
[2021-12-30 20:00] VITALS: BP 119/71
[2021-12-30] MEDS: ATORVASTATIN CALCIUM 20MG TABLET PO SCH (23:13)
[2021-12-30] MEDS: INSULIN GLARGINE 100 UNITS/ML SUBCUT SCH (23:19)
[2021-12-31] MEDS: BLOOD SUGAR DIAGNOSTIC STRIP TEST SCH ×2 (05:32→11:15)
[2021-12-31] MEDS: FAMOTIDINE 20MG TABLET PO SCH (06:12)
[2021-12-31] MEDS: INSULIN LISPRO 100 UNITS/ML SUBCUT SCH ×2 (06:16→12:41)
[2021-12-31 07:59] VITALS: BP 140/75
[2021-12-31] MEDS: DIPHENHYDRAMINE HCL/ZINC ACET 28 GM CREAM TOP SCH (09:00)
[2021-12-31] MEDS: ASCORBIC ACID 500 MG TABLET PO SCH (09:36)
[2021-12-31] MEDS: FERROUS SULFATE 325MG TABLET PO SCH ×2 (09:36→12:54)
[2021-12-31] MEDS: LOSARTAN POTASSIUM 100 MG TABLET PO SCH (09:36)
[2021-12-31] MEDS: DOCUSATE SODIUM 100MG CAPSULE PO SCH (09:36)
[2021-12-31] MEDS: METFORMIN HCL 500MG TABLET PO SCH (09:36)
[2021-12-31] MEDS: LORATADINE 10MG TABLET PO SCH (09:37)
[2021-12-31 09:38] VITALS: BP 140/75
[2021-12-31] MEDS: LIDOCAINE 5% PATCH TOP SCH (09:38)
[2021-12-31] MEDS: INSULIN GLARGINE 100 UNITS/ML SUBCUT SCH (10:00)
[2021-12-31] MEDS ORDERED: METF-414 PO (10:59)
[2021-12-31] MEDS ORDERED: LOSA100T3 PO (10:59)
[2021-12-31] MEDS ORDERED: LANTUSUD SUBCUT (10:59)
[2021-12-31] MEDS ORDERED: FERR-63 PO (10:59)
[2021-12-31] MEDS ORDERED: ATOR20TA PO (10:59)
[2021-12-31] MEDS ORDERED: CLAR10 PO (10:59)
[2021-12-31] MEDS ORDERED: FAMO20TA8 PO (10:59)
[2021-12-31] MEDS ORDERED: ASCO500T20 PO (10:59)
== END 2021-12-31 16:35 | disposition home health service (06) | DRG 552 ==
PROVIDERS: ADMIT Physical Medicine & Rehabilitation Spinal Cord Injury Medicine; ATTEND Internal Medicine
DX: M48.061 Spinal stenosis, lumbar region without neurogenic claudication (principal); M47.16 Other spondylosis with myelopathy, lumbar region; L29.9 Pruritus, unspecified; I10 Essential (primary) hypertension; F39 Unspecified mood [affective] disorder; E78.5 Hyperlipidemia, unspecified; E78.00 Pure hypercholesterolemia, unspecified; E11.9 Type 2 diabetes mellitus without complications; E55.9 Vitamin D deficiency, unspecified; M48.02 Spinal stenosis, cervical region; R26.9 Unspecified abnormalities of gait and mobility; R53.1 Weakness; R53.81 Other malaise; R20.0 Anesthesia of skin; R20.2 Paresthesia of skin; D64.9 Anemia, unspecified; M54.50 Low back pain, unspecified; Z79.4 Long term (current) use of insulin; Z82.49 Family history of ischemic heart disease and other diseases of the circulatory system; Z83.3 Family history of diabetes mellitus; Z88.5 Allergy status to narcotic agent; Z79.899 Other long term (current) drug therapy
CPT/HCPCS: 36415; 76700; 80048; 80053; 81003; 82306; 82607; 82728; 82746; 82962; 83540; 83550; 84134; 84443; 85025; 90686; 93970; 97110; 97116; 97162; 97166; 97530; 97535; C1893; J1815; J7121; Q0162; Q0163